=== PATIENT | female | born 1975 | race Caucasian/White ===

== ENCOUNTER → 2016-12-12 | Outpatient (CLI) | payer BC ==
[2016-12-12 08:52] LABS: Basophils % (A) 0 %; CHCM 30.9; Eosinophils # (A) 0.1 k/uL (0-0.7); Eosinophils % (A) 1 %; HCT 38.1 % (34.0-46.0); HDW 2.31; HGB 11.9 gm/dL (11.4-16.0); Hypochromasia Slight; Luc # (Auto) 0.06; Luc % (Auto) 1; Lymphocytes # (A) 1.4 k/uL (1.0-4.8); Lymphocytes % (A) 19 %; MCH 32.5 pg (25.0-35.0); MCHC 31.1 g/dL (31.0-37.0); MCV 104.5 fL (80.0-100.0); Macrocytosis Moderate; Mean Platelet Volume 9.4; Monocytes # (A) 0.3 k/uL (0-1.0); Monocytes % (A) 4 %; Neutrophils # (A) 5.5 k/uL (1.3-7.7); Neutrophils % (A) 76 %; RBC 3.65 m/uL (3.80-5.40); RDW 14.4 % (11.5-15.5); WBC 7.2 k/uL (3.8-10.6); WBC (Perox) 7.32
[2016-12-12 13:54] LABS: ALT 30 U/L (9-52); AST 15 U/L (14-36); Alkaline Phosphatase 117 U/L (38-126); Anion Gap 7 mmol/L; Bilirubin, Delta 0.3 mg/dL (0.0-0.2); Blood Urea Nitrogen 16 mg/dL (7-17); Calcium 8.9 mg/dL (8.4-10.2); Carbon Dioxide 24 mmol/L (22-30); Chloride 108 mmol/L (98-107); Cholesterol 108 mg/dL (<200); HDL Cholesterol 46 mg/dL (40-60); Iron 34 ug/dL (37-170); Magnesium 1.8 mg/dL (1.6-2.3); Non-African American GFR(MDRD) >60 (>60 ml/min/1.73 sqM); Potassium 4.2 mmol/L (3.5-5.1); Sodium 139 mmol/L (137-145); Total Bilirubin 0.8 mg/dL (0.2-1.3); Total Protein 5.7 g/dL (6.3-8.2); Triglycerides 59 mg/dL (<150)
[2016-12-12 14:03] LABS: % Iron Saturation 15.7 % (20-50); Total Iron Binding Capacity 216 ug/dL (265-497)
[2016-12-13 14:50] LABS: Vitamin D, 1, 25-Dihydroxy 58 pg/mL (20 - 79)
== END | disposition home or self-care (01) ==
LOC: LABWHC1 08:01
DX: E75.5 Other lipid storage disorders (principal); E78.9 Disorder of lipoprotein metabolism, unspecified; E55.9 Vitamin D deficiency, unspecified; R94.4 Abnormal results of kidney function studies; K91.2 Postsurgical malabsorption, not elsewhere classified; D53.8 Other specified nutritional anemias; E87.8 Other disorders of electrolyte and fluid balance, not elsewhere classified; R94.5 Abnormal results of liver function studies; R77.0 Abnormality of albumin; R73.09 Other abnormal glucose; D50.8 Other iron deficiency anemias; R68.89 Other general symptoms and signs; N20.0 Calculus of kidney
CPT/HCPCS: 36415; 80051; 80061; 82040; 82248; 82306; 82310; 82525; 82565; 82652; 82728; 83540; 83550; 83735; 83970; 84075; 84155; 84450; 84460; 84520; 84590; 84630; 85025

== ENCOUNTER → 2018-01-27 | Outpatient (CLI) | payer BC ==
--- NOTE | 2018-01-27 14:50 | CT ---
EXAMINATION TYPE: CT abdomen w con DATE OF EXAM: 01/27/2018 COMPARISON: NONE HISTORY: Abn labs CT DLP: 1660.7 mGycm Automated exposure control for dose reduction was used. TECHNIQUE: Helical acquisition of images was performed from the lung bases through the top of iliac crest to include entire abdomen. CONTRAST: Performed with Oral Contrast and with IV Contrast, patient injected with 100 mL of Isovue 300. FINDINGS: LUNG BASES: No significant abnormality is appreciated. LIVER/GB: Cholecystectomy clips are in place. Mild hepatomegaly. No space occupying lesion. PANCREAS: No significant abnormality is seen. SPLEEN: There is evidence of splenomegaly measuring 13.1 cm craniocaudal dimension. ADRENALS: No significant abnormality is seen. KIDNEYS: No significant abnormality is seen. BOWEL: No significant abnormality is seen. LYMPH NODES: No significant abnormality is seen. OSSEOUS STRUCTURES: No significant abnormality is seen. FREE AIR: No free air is visualized. OTHER: Anterior abdominal wall fat-containing hernia. IMPRESSION: 1. No acute process seen. 2. Splenomegaly. 3. Mild hepatomegaly.
== END | disposition home or self-care (01) ==
LOC: RADCTMAIN 13:26
PROVIDERS: ATTEND Internal Medicine Hematology & Oncology
DX: R16.2 Hepatomegaly with splenomegaly, not elsewhere classified (principal)
CPT/HCPCS: 74160; Q9967

== ENCOUNTER 2018-02-20 06:45 | Day surgery (SDC) | payer BC ==
[2018-02-17 11:21] VITALS: BMI 44.8
[~2018-02-20 06:45] MED LIST: LACTATED RINGERS 1,000 ML IV SCH; Pre Op ABX Message 1 EACH MISC MISCELLANE ONE
[2018-02-20 07:26] VITALS: RESP 16; TEMP 97.1
[2018-02-20] MEDS ORDERED: LIDOCAINE 1% 20 ML VIAL (10MG/ML) FOR IV START INTRADERMA ONE (07:42)
[2018-02-20] MEDS ORDERED: PROPOFOL 10 MG/ML 20 ML VIAL IV ONE (08:12)
[2018-02-20] MEDS ORDERED: fentaNYL (PF) 50 MCG/ML 2 ML AMP ONE (08:12)
--- NOTE | 2018-02-20 08:53 | P.PCN ---
Date of Procedure: 02/20/18 Preoperative Diagnosis: Macrocytic anemia Postoperative Diagnosis: Macrocytic anemia Procedure(s) Performed: Bone marrow aspiration biopsy Anesthesia: MAC Surgeon: Larry Barrera [employer] Captain #1: Stated None Estimated Blood Loss (ml): 4 Pathology: other Condition: stable Disposition: same day Indications for Procedure: Persistent macrocytic anemia, with negative lab work up Operative Findings: Adequate samples Description of Procedure: The procedure was explained to the patient in detail in the office by Dr. Saunders. Informed consent was obtained on arrival to the endoscopy suite, along with IV access. She was placed in the left lateral decubitus position and area over both posterior and if crest was cleaned and prepped with chlorhexidine and sterile draping. IV sedation was then initiated. Local anesthesia was administered with lidocaine. A Jamshidi needle was then inserted and bone marrow aspirate and biopsy obtained. The initial biopsy sample was small due to which to additional passes were made, ultimately with a 6 inch bone marrow needle. This resulted in an adequate biopsy sample being obtained. On withdrawal of the needle heis was easily achieved. Blood loss was minimal and recovery from sedation was satisfactory. She appeared to have tolerated the procedure well without any obvious immediate complications.
[2018-02-20] MEDS ORDERED: ONDANSETRON 4 MG/2 ML VIAL IVP ONE (09:10)
[2018-02-20 09:11] LABS: Basophils % (A) 1 %; Eosinophils # (A) 0.2 k/uL (0-0.7); Eosinophils % (A) 4 %; HCT 37.6 % (34.0-46.0); HGB 11.6 gm/dL (11.4-16.0); Lymphocytes # (A) 1.9 k/uL (1.0-4.8); Lymphocytes % (A) 33 %; MCH 30.6 pg (25.0-35.0); MCHC 30.9 g/dL (31.0-37.0); MCV 99.1 fL (80.0-100.0); Macrocytosis Slight; Mean Platelet Volume 8.6; Monocytes # (A) 0.2 k/uL (0-1.0); Monocytes % (A) 3 %; Neutrophils # (A) 3.4 k/uL (1.3-7.7); Neutrophils % (A) 59 %; Platelet Count 338 k/uL (150-450); RDW 15.9 % (11.5-15.5); WBC 5.8 k/uL (3.8-10.6)
[2018-02-20 09:37] VITALS: BP 111/67; PULSE 65
[2018-02-20] MEDS ORDERED: ACETAMINOPHEN TAB 325 MG TAB PO ONE (09:43)
== END 2018-02-20 10:27 | disposition home or self-care (01) ==
LOC: OR 06:45
PROVIDERS: ATTEND Internal Medicine Hematology & Oncology
DX: D53.9 Nutritional anemia, unspecified (principal); K95.89 Other complications of other bariatric procedure; D50.8 Other iron deficiency anemias; D50.0 Iron deficiency anemia secondary to blood loss (chronic); M79.7 Fibromyalgia; M15.9 Polyosteoarthritis, unspecified; E07.9 Disorder of thyroid, unspecified; F32.9 Major depressive disorder, single episode, unspecified; K21.9 Gastro-esophageal reflux disease without esophagitis; R10.9 Unspecified abdominal pain; E66.9 Obesity, unspecified; Z68.41 Body mass index [BMI] 40.0-44.9, adult; Z79.890 Hormone replacement therapy; Z79.899 Other long term (current) drug therapy; Z79.1 Long term (current) use of non-steroidal anti-inflammatories (NSAID)
CPT/HCPCS: 81025; 85025; 38221; J2405; J3010; J2704

== ENCOUNTER → 2018-04-22 | Outpatient (CLI) | payer BC ==
[2018-04-22 12:22] LABS: ALT 30 U/L (9-52); AST 19 U/L (14-36); Alkaline Phosphatase 103 U/L (38-126); Anion Gap 6 mmol/L; Blood Urea Nitrogen 15 mg/dL (7-17); Carbon Dioxide 25 mmol/L (22-30); Chloride 108 mmol/L (98-107); Glucose 81 mg/dL (74-99); Potassium 4.3 mmol/L (3.5-5.1); Sodium 139 mmol/L (137-145); Total Bilirubin 0.7 mg/dL (0.2-1.3)
[2018-04-22 18:35] LABS: Iron Saturation 21.94 (12.00-45.00); Protein, Total 5.9 g/dL (6.2-8.2)
[2018-04-22 19:39] LABS: Hepatitis B Surface AB- Quant 3.5 mIU/mL; Hepatitis C IgG Antibody Non-Reactive (Non-Reactive)
[2018-04-23 12:42] LABS: Ceruloplasmin 12.6 mg/dL (20.0-60.0)
[2018-04-24 10:49] LABS: Albumin 3.11 g/dL (3.80-4.90); Gamma Globulin 1.31 g/dL (0.70-1.50)
== END | disposition home or self-care (01) ==
LOC: LABWHC1 11:35
PROVIDERS: ATTEND Internal Medicine Gastroenterology
DX: R94.5 Abnormal results of liver function studies (principal); R16.2 Hepatomegaly with splenomegaly, not elsewhere classified
CPT/HCPCS: 36415; 80053; 82103; 82172; 82247; 82390; 82728; 82977; 83010; 83516; 83540; 83550; 83883; 84165; 84460; 86038; 86706; 86803

== ENCOUNTER → 2018-11-24 | Outpatient (CLI) | payer BC ==
[2018-11-24 19:53] LABS: Albumin 2.8 g/dL (3.80-4.90); Albumin/Globulin Ratio 1.33 (1.60-3.17); Anion Gap 4.4 mmol/L (4.00-12.00); Calcium 8.3 mg/dL (8.7-10.3); Carbon Dioxide 26.6 mmol/L (21.6-31.8); Globulin 2.1 g/dL (1.6-3.3); Potassium 4.8 mmol/L (3.5-5.5); Total Bilirubin 0.6 mg/dL (0.2-1.2); Total Protein 4.9 g/dL (6.2-8.2)
== END | disposition home or self-care (01) ==
LOC: LABWHC1 13:55
PROVIDERS: ATTEND Internal Medicine Gastroenterology
DX: R79.89 Other specified abnormal findings of blood chemistry (principal)
CPT/HCPCS: 36415; 80053

== ENCOUNTER → 2018-12-01 | Outpatient (CLI) | payer BC ==
[2018-12-01 15:32] LABS: Basophils % (A) 0 %; Eosinophils # (A) 0.2 k/uL (0-0.7); Eosinophils % (A) 4 %; HCT 30.8 % (34.0-46.0); HGB 10.1 gm/dL (11.4-16.0); Lymphocytes # (A) 1.4 k/uL (1.0-4.8); Lymphocytes % (A) 26 %; MCH 33.5 pg (25.0-35.0); MCHC 32.7 g/dL (31.0-37.0); MCV 102.6 fL (80.0-100.0); Macrocytosis Slight; Mean Platelet Volume 8.9; Monocytes # (A) 0.2 k/uL (0-1.0); Monocytes % (A) 3 %; Neutrophils # (A) 3.6 k/uL (1.3-7.7); Neutrophils % (A) 65 %; Platelet Count 281 k/uL (150-450); RDW 15.2 % (11.5-15.5); WBC 5.5 k/uL (3.8-10.6)
[2018-12-01 20:31] LABS: Iron Saturation 270.18 (12.00-45.00)
[2018-12-01 20:55] LABS: Vitamin D 25 Hydroxy 13.6 ng/mL (30.0-100.0)
[2018-12-01 21:13] LABS: Albumin/Globulin Ratio 1.15 (1.60-3.17); Bilirubin, Conjugated 0.4 mg/dL (0.20-0.40); Bilirubin,Unconjugated 0.5 mg/dL; Globulin 2.6 g/dL (1.6-3.3); Total Bilirubin 0.9 mg/dL (0.3-1.2); Total Protein 5.6 g/dL (6.2-8.2)
[2018-12-01 23:16] LABS: Parathyroid Hormone Intact 137.5 pg/mL (14.0-72.0)
== END | disposition home or self-care (01) ==
LOC: LABWHC1 12:51
DX: K91.2 Postsurgical malabsorption, not elsewhere classified (principal); R94.5 Abnormal results of liver function studies; R77.0 Abnormality of albumin; E56.8 Deficiency of other vitamins; E50.9 Vitamin A deficiency, unspecified; E21.0 Primary hyperparathyroidism; E87.8 Other disorders of electrolyte and fluid balance, not elsewhere classified; R94.4 Abnormal results of kidney function studies; R68.89 Other general symptoms and signs; D50.8 Other iron deficiency anemias; E60 Dietary zinc deficiency; E61.9 Deficiency of nutrient element, unspecified; E07.9 Disorder of thyroid, unspecified
CPT/HCPCS: 36415; 80076; 82306; 82525; 82565; 82728; 83540; 83550; 83970; 84436; 84443; 84480; 84520; 84590; 84630; 85025

== ENCOUNTER → 2018-12-01 | Outpatient (CLI) | payer BC ==
[~2018-12-01] MED LIST changes: +FERUMOXYTOL 510 MG in SODIUM CHLORIDE 0.9% 50 ML IVPB NR; -LACTATED RINGERS 1,000 ML IV SCH; -Pre Op ABX Message 1 EACH MISC MISCELLANE ONE; +SODIUM CHLORIDE 0.9% 500 ML 500 ML in EMPTY BAG 1 BAG IV PRN
[2018-12-01 14:17] VITALS: BP 108/66; PULSE 84; RESP 16; TEMP 97.7
== END ==
LOC: PROCWHC3 13:38
PROVIDERS: ATTEND Internal Medicine Hematology & Oncology
DX: D50.9 Iron deficiency anemia, unspecified (principal)
CPT/HCPCS: 96365; Q0138

== ENCOUNTER → 2018-12-02 | Outpatient (CLI) | payer BC ==
[2018-12-02 16:33] LABS: Cholesterol 102 mg/dL (0-200); Triglycerides <50.0 mg/dL (0.0-149.0); VLDL Calculation 9.98 mg/dL (5.00-40.00)
== END | disposition home or self-care (01) ==
LOC: LABWHC1 07:36
DX: K91.2 Postsurgical malabsorption, not elsewhere classified (principal); R94.5 Abnormal results of liver function studies; R77.0 Abnormality of albumin; E56.8 Deficiency of other vitamins; E50.9 Vitamin A deficiency, unspecified; E21.5 Disorder of parathyroid gland, unspecified; E87.8 Other disorders of electrolyte and fluid balance, not elsewhere classified; R94.4 Abnormal results of kidney function studies; R68.89 Other general symptoms and signs; E61.1 Iron deficiency; E60 Dietary zinc deficiency; E61.0 Copper deficiency; E07.9 Disorder of thyroid, unspecified
CPT/HCPCS: 36415; 80061

== ENCOUNTER → 2018-12-15 | Outpatient (CLI) | payer BC ==
--- NOTE | 2018-12-15 15:55 | US ---
EXAMINATION TYPE: US pelvic complete DATE OF EXAM: 12/15/2018 COMPARISON: NONE CLINICAL HISTORY: N92.0 FREQ MENSTRATION. Pelvic pain near symphysis pubis, weight loss of 200lbs the past 2 year s and cycles are irregular, , c-sections TECHNIQUE: TA. Transabdominal sonographic images of the pelvis were acquired. Date of LMP: 12/05/2018 EXAM MEASUREMENTS: Uterus: 9.6 x 5.1 x 4.3 cm Endometrial Stripe: 0.8 cm Right Ovary: 4.3 x 3.4 x 3.4 cm Left Ovary: 4.9 x 3.9 x 4.1 cm 1. Uterus: Anteverted wnl 2. Endometrium: wnl 3. Right Ovary: 3.1cm cystic lesion seen 4. Left Ovary: 4.5cm cystic lesion seen 5. Bilateral Adnexa: wnl 6. Posterior cul-de-sac: wnl IMPRESSION: Bilateral ovarian cysts appear simple. Follow-up is recommended.
== END | disposition home or self-care (01) ==
LOC: RADUSWWP 13:34
PROVIDERS: ATTEND Family Medicine
DX: N83.201 Unspecified ovarian cyst, right side (principal); N83.202 Unspecified ovarian cyst, left side
CPT/HCPCS: 76856

== ENCOUNTER → 2019-02-04 | Outpatient (CLI) | payer BC ==
[2019-02-04 11:47] LABS: Basophils % (A) 1 %; Eosinophils # (A) 0.1 k/uL (0-0.7); Eosinophils % (A) 2 %; HCT 31.9 % (34.0-46.0); HGB 9.8 gm/dL (11.4-16.0); Hypochromasia Slight; Lymphocytes # (A) 0.9 k/uL (1.0-4.8); Lymphocytes % (A) 27 %; MCH 32.6 pg (25.0-35.0); MCHC 30.7 g/dL (31.0-37.0); MCV 106.3 fL (80.0-100.0); Macrocytosis Moderate; Mean Platelet Volume 9.2; Monocytes # (A) 0.2 k/uL (0-1.0); Monocytes % (A) 5 %; Neutrophils # (A) 2.2 k/uL (1.3-7.7); Neutrophils % (A) 64 %; Platelet Count 229 k/uL (150-450); RDW 13.3 % (11.5-15.5); WBC 3.5 k/uL (3.8-10.6)
[2019-02-04 16:17] LABS: Vitamin D 25 Hydroxy 18.2 ng/mL (30.0-100.0)
[2019-02-04 17:08] LABS: Parathyroid Hormone Intact 96.6 pg/mL (14.0-72.0)
[2019-02-04 17:15] LABS: Iron Saturation 18.58 (12.00-45.00)
[2019-02-04 18:03] LABS: African American GFR (CKD) 138.4 (60.0-200.0); Albumin/Globulin Ratio 1.43 (1.60-3.17); Bilirubin, Conjugated 0.3 mg/dL (0.20-0.40); Bilirubin,Unconjugated 0.3 mg/dL; Calcium 8.6 mg/dL (8.7-10.3); Globulin 2.1 g/dL (1.6-3.3); Total Bilirubin 0.6 mg/dL (0.2-1.2); Total Protein 5.1 g/dL (6.2-8.2)
[2019-02-05 13:45] LABS: Zinc, Serum 45 ug/dL (60-130)
== END | disposition home or self-care (01) ==
LOC: LABWHC1 10:42
DX: K91.2 Postsurgical malabsorption, not elsewhere classified (principal); R77.0 Abnormality of albumin; E87.8 Other disorders of electrolyte and fluid balance, not elsewhere classified; R94.4 Abnormal results of kidney function studies; D60.8 Other acquired pure red cell aplasias; E61.0 Copper deficiency; E46 Unspecified protein-calorie malnutrition; R68.89 Other general symptoms and signs
CPT/HCPCS: 36415; 80076; 82306; 82310; 82525; 82565; 82728; 83540; 83550; 83970; 84520; 84590; 84630; 85025

== ENCOUNTER → 2019-06-26 | Outpatient (CLI) | payer BC ==
[2019-06-26 10:12] LABS: Basophils % (A) 1 %; Eosinophils # (A) 0.1 k/uL (0-0.7); Eosinophils % (A) 3 %; HCT 31.2 % (34.0-46.0); HGB 9.8 gm/dL (11.4-16.0); Hypochromasia Marked; Lymphocytes # (A) 1.3 k/uL (1.0-4.8); Lymphocytes % (A) 26 %; MCH 32.2 pg (25.0-35.0); MCHC 31.5 g/dL (31.0-37.0); MCV 102.1 fL (80.0-100.0); Macrocytosis Slight; Mean Platelet Volume 7.5; Monocytes # (A) 0.2 k/uL (0-1.0); Monocytes % (A) 4 %; Neutrophils # (A) 3.3 k/uL (1.3-7.7); Neutrophils % (A) 65 %; Platelet Count 291 k/uL (150-450); RBC 3.06 m/uL (3.80-5.40); RDW 13.5 % (11.5-15.5); WBC 5.1 k/uL (3.8-10.6)
[2019-06-26 17:45] LABS: % Iron Saturation 10.61 (12.00-45.00); African American GFR (CKD) 130.3 (60.0-200.0); Calcium 8.7 mg/dL (8.7-10.3); Chol/HDL Ratio 2.63; LDL Cholesterol,Calculated 60.8 mg/dL (0.0-131.0); VLDL Calculation 14.2 mg/dL (5.00-40.00)
[2019-06-26 17:51] LABS: Ferritin 57.7 ng/mL (10.0-291.0)
[2019-06-29 17:28] LABS: Zinc, Serum 49 ug/dL (60-130)
[2019-07-01 12:11] LABS: Vitamin A <13 ug/dL (38-106)
== END | disposition home or self-care (01) ==
LOC: LABWHC1 09:17
DX: K91.2 Postsurgical malabsorption, not elsewhere classified (principal); E61.1 Iron deficiency; E87.8 Other disorders of electrolyte and fluid balance, not elsewhere classified; R94.4 Abnormal results of kidney function studies
CPT/HCPCS: 36415; 80061; 82306; 82310; 82525; 82565; 82728; 83540; 83550; 83970; 84520; 84590; 84630; 85025

== ENCOUNTER → 2019-10-03 | Outpatient (CLI) | payer BC ==
[2019-10-03 11:53] LABS: Basophils % (A) 1 %; Eosinophils # (A) 0.1 k/uL (0-0.7); Eosinophils % (A) 3 %; HCT 27.8 % (34.0-46.0); HGB 8.5 gm/dL (11.4-16.0); Hypochromasia Moderate; Lymphocytes # (A) 0.7 k/uL (1.0-4.8); Lymphocytes % (A) 20 %; MCH 29.9 pg (25.0-35.0); MCHC 30.5 g/dL (31.0-37.0); MCV 98.3 fL (80.0-100.0); Mean Platelet Volume 9.6; Monocytes # (A) 0.1 k/uL (0-1.0); Monocytes % (A) 3 %; Neutrophils # (A) 2.7 k/uL (1.3-7.7); Neutrophils % (A) 71 %; Platelet Count 293 k/uL (150-450); RBC 2.83 m/uL (3.80-5.40); WBC 3.8 k/uL (3.8-10.6)
[2019-10-03 18:59] LABS: Ferritin 65.6 ng/mL (10.0-291.0)
[2019-10-03 19:04] LABS: % Iron Saturation 6.37 (12.00-45.00); Albumin 3.1 g/dL (3.80-4.90); Albumin/Globulin Ratio 1.41 (1.60-3.17); Bilirubin, Conjugated 0.3 mg/dL (0.20-0.40); Bilirubin,Unconjugated 0.2 mg/dL; Chol/HDL Ratio 2.73; Globulin 2.2 g/dL (1.6-3.3); LDL Cholesterol,Calculated 52.6 mg/dL (0.0-131.0); Total Bilirubin 0.5 mg/dL (0.2-1.2); Total Protein 5.3 g/dL (6.2-8.2); VLDL Calculation 11.4 mg/dL (5.00-40.00)
== END | disposition home or self-care (01) ==
LOC: LABWHC1 10:48
DX: E78.5 Hyperlipidemia, unspecified (principal); R94.5 Abnormal results of liver function studies; R77.0 Abnormality of albumin; E83.39 Other disorders of phosphorus metabolism; E56.8 Deficiency of other vitamins; E83.50 Unspecified disorder of calcium metabolism; E50.9 Vitamin A deficiency, unspecified; Z13.1 Encounter for screening for diabetes mellitus; E46 Unspecified protein-calorie malnutrition; E78.6 Lipoprotein deficiency; D50.8 Other iron deficiency anemias; K91.2 Postsurgical malabsorption, not elsewhere classified; E83.2 Disorders of zinc metabolism; E83.00 Disorder of copper metabolism, unspecified; E07.9 Disorder of thyroid, unspecified
CPT/HCPCS: 36415; 80061; 80076; 82306; 82525; 82728; 83540; 83550; 83970; 84436; 84443; 84480; 84590; 84630; 85025

== ENCOUNTER → 2019-11-04 | Outpatient (CLI) | payer BC ==
[2019-11-04 12:40] LABS: Anisocytosis Slight; Basophils % (A) 1 %; Eosinophils # (A) 0.2 k/uL (0-0.7); Eosinophils % (A) 3 %; HCT 36.2 % (34.0-46.0); Hypochromasia Moderate; Lymphocytes # (A) 1.5 k/uL (1.0-4.8); Lymphocytes % (A) 30 %; MCH 29.9 pg (25.0-35.0); MCHC 30.5 g/dL (31.0-37.0); MCV 97.9 fL (80.0-100.0); Macrocytosis Slight; Mean Platelet Volume 9.1; Monocytes # (A) 0.2 k/uL (0-1.0); Monocytes % (A) 4 %; Neutrophils % (A) 60 %; Platelet Count 389 k/uL (150-450); RBC 3.69 m/uL (3.80-5.40); RDW 16.3 % (11.5-15.5)
[2019-11-04 17:10] LABS: % Iron Saturation 14.29 (12.00-45.00); Albumin 3.8 g/dL (3.80-4.90); Albumin/Globulin Ratio 1.52 (1.60-3.17); Bilirubin, Conjugated 0.5 mg/dL (0.20-0.40); Bilirubin,Unconjugated 0.2 mg/dL; Globulin 2.5 g/dL (1.6-3.3); Total Bilirubin 0.7 mg/dL (0.2-1.2); Total Protein 6.3 g/dL (6.2-8.2)
[2019-11-04 17:11] LABS: Ferritin 289.5 ng/mL (10.0-291.0)
[2019-11-05 15:08] LABS: Zinc, Serum 52 ug/dL (60-130)
== END | disposition home or self-care (01) ==
LOC: LABWHC1 11:20
DX: R94.5 Abnormal results of liver function studies (principal); R77.0 Abnormality of albumin; R68.89 Other general symptoms and signs; E78.6 Lipoprotein deficiency; E78.5 Hyperlipidemia, unspecified; N20.0 Calculus of kidney; E83.2 Disorders of zinc metabolism; E83.00 Disorder of copper metabolism, unspecified; K90.9 Intestinal malabsorption, unspecified
CPT/HCPCS: 36415; 80076; 82306; 82525; 82728; 83540; 83550; 84630; 85025

== ENCOUNTER → 2022-11-23 | Outpatient (CLI) | payer BC ==
--- NOTE | 2022-11-23 16:30 | CT ---
CTA abdomen and pelvis. HISTORY: Rule out portal vein., thrombosis right-sided abdominal pain COMPARISON: CT abdomen dated 01/27/2018. Multiple axial images were obtained through the abdomen and pelvis following uneventful administratio n of nonionic IV contrast material. Coronal and sagittal reconstructions were generated and reviewed. 3-D postprocessing was performed. FINDINGS: Visualized lung bases are clear. There are surgical absence of gallbladder. There are postsurgical changes involving the right lower quadrant anterior abdominal wall. There are anastomotic sutures The mid abdominal bowel loops. There are postsurgical changes involving the stomach is well. The bowel loops are normal in caliber is no evidence of obstruction. There is no free intraperitoneal air or fluid. The kidneys excrete contrast promptly and symmetrically and there is no solid renal mass or hydroneph rosis. There is a nonobstructing 6 mm left renal calculus. There are marked parapelvic cysts bilatera lly. Caliber the abdominal aorta is normal is no evidence of aneurysm. There is no evidence of portal vein thrombosis. There is persistent mild splenomegaly and possibly mild hepatomegaly. There is no pancreatic mass or adrenal mass. There is increased subcutaneous edema particularly in the lower anterior abdominal wall and pelvis co nsistent with anasarca. There is no pelvic mass or adenopathy. No focal osseous abnormalities are seen. IMPRESSION: 1. No portal vein thrombosis. 2. Increasing anasarca of the lower anterior abdominal wall and pelvis. 3. 6 mm nonobstructing left renal calculus. 4. Multiple postsurgical changes involving the abdominal wall, stomach and bowel. Cholecystectomy. 5. Persistent mild splenomegaly possible mild hepatomegaly.
== END | disposition home or self-care (01) ==
LOC: RADCTMAIN 14:39
PROVIDERS: ATTEND Internal Medicine Hematology & Oncology
DX: N20.0 Calculus of kidney (principal); I81 Portal vein thrombosis; R60.1 Generalized edema; R16.1 Splenomegaly, not elsewhere classified; Z90.49 Acquired absence of other specified parts of digestive tract
CPT/HCPCS: 74174; Q9967

== ENCOUNTER → 2022-12-01 | Outpatient (CLI) | payer BC ==
--- NOTE | 2022-12-01 10:43 | MR ---
MRCP. HISTORY: Right upper quadrant pain COMPARISON: None TECHNIQUE: MRCP of the abdomen was performed according to protocol. Exam was performed with and witho ut contrast. Findings There is surgical absence of the gallbladder. Biliary tree is patent without filling defects or dilatation. No focal masses are seen within the liver or pancreas. There are marked parapelvic cysts of the kidneys. The bowel loops are normal in caliber. There is no free intraperitoneal fluid. IMPRESSION: Unremarkable MRCP. Status post cholecystectomy.
== END | disposition home or self-care (01) ==
LOC: RADMRIMAIN 08:58
PROVIDERS: ATTEND Internal Medicine Hematology & Oncology
DX: R10.11 Right upper quadrant pain (principal); Z90.49 Acquired absence of other specified parts of digestive tract
CPT/HCPCS: 74181

== ENCOUNTER → 2023-02-12 | Outpatient (CLI) | payer BC ==
[2023-02-13 12:17] LABS: ALT 12 U/L (8-44); AST 9 U/L (13-35); Albumin 2.7 d/dL (3.8-4.9); Albumin/Globulin Ratio 1.04 Ratio (1.60-3.17); Alkaline Phosphatase 155 U/L (41-126); BUN/Creat Ratio 27.83 Ratio (12.00-20.00); Blood Urea Nitrogen 16.7 mg/dL (9.0-27.0); Calcium 8.1 mg/dL (8.7-10.3); Carbon Dioxide 21.6 mmol/L (21.6-31.8); Chloride 111 mmol/L (96-109); Globulin 2.6 d/dL (1.6-3.3); Glucose 78 mg/dL (70-110); Phosphorus 3.1 mg/dL (2.4-5.1); Potassium 4.1 mmol/L (3.5-5.5); Sodium 140 mmol/L (135-145); T4, Free (Free Thyroxine) 1.09 ng/dL (0.80-1.80); Total Bilirubin 0.5 mg/dL (0.3-1.2); Total Protein 5.3 d/dL (6.2-8.2)
== END | disposition home or self-care (01) ==
LOC: LABWHC1 14:34
PROVIDERS: ATTEND Internal Medicine
DX: E03.9 Hypothyroidism, unspecified (principal); E34.9 Endocrine disorder, unspecified; E55.9 Vitamin D deficiency, unspecified
CPT/HCPCS: 36415; 80053; 82306; 83970; 84100; 84439; 84443

== ENCOUNTER 2023-12-29 12:24 | Inpatient (IN) | payer BC ==
--- NOTE | 2023-12-29 12:57 | ED ---
General Adult HPI - General Chief complaint: Weakness Stated complaint: Weakness Time Seen by Provider: 12/29/23 12:29 Source: patient, family, EMS, RN notes reviewed Mode of arrival: EMS Limitations: no limitations - History of Present Illness Initial comments: Patient is a 48-year-old female present to the emergency department from skilled nursing for weakness. Onset of symptoms was 3 days ago. Patient has been increased fatigue. provides majority of history as patient is drowsy. Patient does have history of anemia and possible liver diseases. Questionable history of [place]'s disease. and patient believes 74 systolic blood pr essure is normal for her. Patient was recently hospitalized for infection of her right leg, cellulitis. Patient does see hematology for chronic anemia. - Related Data Home Medications Medication Instructions Recorded Confirmed Vortioxetine Hydrobromide 20 mg PO DAILY@0900 02/17/12/29/23 [Trintellix] Calcium Carbonate [Tums] 1,000 mg PO TID PRN 12/29/23 12/29/23 Cyclobenzaprine [Flexeril] 10 mg PO TID PRN 12/29/23 12/29/23 Furosemide [Lasix] 20 mg PO DAILY@1300 12/29/23 12/29/23 Furosemide [Lasix] 40 mg PO DAILY@0600 12/29/23 12/29/23 Gabapentin [Neurontin] 300 mg PO HS@2100 12/29/23 12/29/23 HYDROcodone/APAP 5-325MG [[place] 1 tab PO Q6H PRN 12/29/23 12/29/23 5-325] Hydrocortisone [Cortef] 20 mg PO DAILY@0900 12/29/23 12/29/23 Lactose-Reduced Food [Ensure Plus] 1 can PO DAILY@0900 12/29/23 12/29/23 Levothyroxine Sodium [Synthroid] 200 mcg PO DAILY@0600 12/29/23 12/29/23 Miconazole Nitrate Powder 2% 1 applic TOPICAL Q12H 12/29/23 12/29/23 Midodrine HCl [ProAmatine] 10 mg PO TID-W/MEALS@08,12,17 12/29/23 12/29/23 Nystatin 100,000 Unit/gm Powd 1 applic TOPICAL BID 12/29/23 12/29/23 [Mycostatin Powder] Ondansetron [Zofran] 4 mg PO Q6H PRN 12/29/23 12/29/23 Potassium Chloride ER [K-Dur 20] 20 meq PO DAILY@0600 12/29/23 12/29/23 Spironolactone [Aldactone] 12.5 mg PO DAILY@0900 12/29/23 12/29/23 Therahoney External Gel 1 applic TOPICAL DAILY PRN 12/29/23 12/29/23 Therahoney External Gel 1 applic TOPICAL DAILY PRN 12/29/23 12/29/23 Therahoney External Gel 1 applic TOPICAL HS 12/29/23 12/29/23 Therahoney External Gel 1 applic TOPICAL HS 12/29/23 12/29/23 Z-Guard 1 applic TOPICAL BID 12/29/23 12/29/23 Z-Guard 1 applic TOPICAL DAILY PRN 12/29/23 12/29/23 Allergies Allergy/AdvReac Type Severity Reaction Status Date / Time No Known Allergies Allergy Verified 12/29/23 14:04 Review of Systems ROS Statement: Those systems with pertinent positive or pertinent negative responses have been documented in the HPI. ROS Other: All systems not noted in ROS Statement are negative. Constitutional: Denies: fever Eyes: Denies: eye pain ENT: Denies: ear pain Respiratory: Denies: dyspnea Cardiovascular: Denies: chest pain Endocrine: Reports: as per HPI, fatigue Neurological: Reports: as per HPI. Denies: headache Past Medical History Past Medical History: GERD/Reflux, Osteoarthritis (OA), Thyroid Disorder Additional Past Medical History / Comment(s): enlarged liver and spleen,hx. iron deficiency anemia, recent change in bowel movements , abdominal pain, nausea, blood clots post covid History of Any Multi-Drug Resistant Organisms: CRE, Other MDRO Date of last positivie culture/infection: 10/14/23 MDRO [facility] MDRO Source:: Urine Past Surgical History: Bariatric Surgery, Section, Cholecystectomy, Tubal Ligation Additional Past Surgical History / Comment(s): Bariatric revision duodenum switch 2015,2000 Aneesh-en-Y gastric bypass, 3 c-sections. PANECTOMY. Past Anesthesia/Blood Transfusion Reactions: Family Hisory of Malignant Hyperthermia Additional Past Anesthesia/Blood Transfusion Reaction / Comment(s): 1rst cousin hx malignant hyperthermia as child.Pt has had anesthesia in past without problems Past Psychological History: Depression Smoking Status: Never smoker - Past Family History Mother Family Medical History: No Reported History General Exam Limitations: no limitations General appearance: alert Head exam: Present: normocephalic Eye exam: Present: normal appearance ENT exam: Present: mucous membranes dry Neck exam: Present: normal inspection Respiratory exam: Present: normal lung sounds bilaterally Cardiovascular Exam: Present: regular rate, normal rhythm GI/Abdominal exam: Present: soft. Absent: tenderness Extremities exam: Present: pedal edema Neurological exam: Present: alert Psychiatric exam: Present: flat affect Skin exam: Present: other (Right thigh with some erythema and open area with mild purulent drainage. Right anterior tibial region with stage II ulcer with eschar formation) Course Vital Signs 12/29/23 12/29/23 12/29/23 12:33 13:30 14:30 Temperature 97.9 F 97.6 F Pulse Rate 99 98 93 Respiratory 16 16 12 Rate Blood Pressure 74/44 73/45 75/46 O2 Sat by Pulse 93 L 85 L Oximetry 12/29/23 12/29/23 12/29/23 14:49 14:51 15:23 Temperature Pulse Rate 89 86 Respiratory 16 16 Rate Blood Pressure 76/43 80/48 O2 Sat by Pulse 97 97 100 Oximetry EKG Findings - EKG Results: EKG: interpreted by ERMD, sinus rhythm, normal axis, normal QRS, normal ST/T Medical Decision Making - Medical Decision Making Was pt. sent in by a medical professional or institution (, PA, PARAFFINER, urgent care, hospital, or skilled nursing...) When possible be specific @ -Patient was sent from nursing facility Did you speak to anyone other than the patient for history (EMS, parent, family, police, friend...)? What history was obtained from this source @ - is present and helps provide additional history as patient is a poor historian. He does provide additional history of patient recent admission at [facility] Did you review nursing and triage notes (agree or disagree)? Why? @ -I reviewed and agree with nursing and triage notes Were old charts reviewed (outside hosp., previous admission, EMS record, old EKG, old radiological studies, urgent care reports/EKG's, skilled nursing records)? Report findings @ -Previous labs reviewed Differential Diagnosis (chest pain, altered mental status, abdominal pain women, abdominal pain men, vaginal bleeding, weakness, fever, dyspnea, syncope, headache, dizziness, GI bleed, back pain, seizure, CVA, palpatations, mental health, musculoskeletal)? @ -Differential Weakness: Hypoglycemia, shock, sepsis, hyponatremia, anemia, infection, [place], ETOH, adverse medicine reaction, overdose, stroke, this is not meant to be an all-inclusive list. EKG interpreted by me (3pts min.). @ -As above X-rays interpreted by me (1pt min.). @ -Right tib-fib and femur x-ray did not reveal acute abnormalities. Chest x- ray shows bilateral streaking and posterior. CT interpreted by me (1pt min.). @ -None done U/S interpreted by me (1pt. min.). @ -None done What testing was considered but not performed or refused? (CT, X-rays, U/S, labs)? Why? @ -None What meds were considered but not given or refused? Why? @ -Considered central line however patient has thrombocytopenia. Considered p ressors. Case was discussed twice with Dr. Uribe who feels patient is dehydrated and is not necessitate at this time. He recommends not giving pressors and he will continue to monitor patient. No ICU necessary at this time Did you discuss the management of the patient with other professionals (professionals i.e. , PA, PARAFFINER, lab, RT, psych nurse, social director, security architect, teacher, special weapons unit officer, case fitter)? Give summary @ -See above, case also discussed with practitioner Katia Almodovar who will admit covering Dr. Avelar who is covering for Dr. Gilliland Was smoking cessation discussed for >3mins.? @ -No Was critical care preformed (if so, how long)? @ -31 minutes critical care Were there social determinants of health that impacted care today? How? (Homelessness, low income, unemployed, alcoholism, drug addiction, transportation, low edu. Level, literacy, decrease access to med. care, fdc, rehab)? @ -No Was there de-escalation of care discussed even if they declined (Discuss DNR or withdrawal of care, Hospice)? DNR status @ -No What co-morbidities impacted this encounter? (DM, HTN, Smoking, COPD, CAD, Cancer, CVA, ARF, Chemo, Hep., AIDS, mental health diagnosis, sleep apnea, morbid obesity)? @ -None Was patient admitted / discharged? Hospital course, mention meds given and route, prescriptions, significant lab abnormalities, going to OR and other pertinent info. @ -Patient reevaluated several times. Blood pressure has been borderline. Patient has received IV fluids. Patient will be admitted. Admission orders written. Undiagnosed new problem with uncertain prognosis? @ -No Drug Therapy requiring intensive monitoring for toxicity (Heparin, Nitro, Insulin, Cardizem)? @ -No Were any procedures done? @ -No Diagnosis/symptom? @ -New onset thrombocytopenia. Acute kidney injury Acute, or Chronic, or Acute on Chronic? @ -Acute, acute Uncomplicated (without systemic symptoms) or Complicated (systemic symptoms)? @ -Default Side effects of treatment? @ -No Exacerbation, Progression, or Severe Exacerbation? @ -No Poses a threat to life or bodily function? How? (Chest pain, [place], NJ, pneumonia, PE, COPD, DKA, ARF, appy, cholecystitis, CVA, Diverticulitis, Homicidal, Suicidal, threat to staff... and all critical care pts) @ -No - Lab Data Result diagrams: 12/29/23 13:59 12/29/23 13:59 Lab Results 12/29/23 12/29/23 12/29/23 Range/Units 13:53 13:59 13:59 WBC 4.3 (3.8-10.6) k/uL RBC 1.89 L (3.80-5.40) m/uL Hgb 7.3 L (11.4-16.0) gm/dL Hct 22.7 L (34.0-46.0) % MCV 120.1 H (80.0-100.0) fL MCH 38.7 H (25.0-35.0) pg MCHC 32.3 (31.0-37.0) g/dL RDW 16.8 H (11.5-15.5) % Plt Count 24 L (150-450) k/uL MPV 13.7 Neutrophils % 80 % Lymphocytes % 15 % Monocytes % 4 % Eosinophils % 1 % Basophils % 0 % Neutrophils # 3.4 (1.3-7.7) k/uL Lymphocytes # 0.6 L (1.0-4.8) k/uL Monocytes # 0.2 (0-1.0) k/uL Eosinophils # 0.0 (0-0.7) k/uL Basophils # 0.0 (0-0.2) k/uL Manual Slide Review Performed Polychromasia Present Hypochromasia Marked Poikilocytosis Slight Anisocytosis Slight Macrocytosis Marked A PT 12.3 (10.0-12.5) sec INR 1.2 H (<1.2) APTT 28.6 (22.0-30.0) sec Sodium (137-145) mmol/L Potassium (3.5-5.1) mmol/L Chloride (98-107) mmol/L Carbon Dioxide (22-30) mmol/L Anion Gap mmol/L BUN (7-17) mg/dL Creatinine (0.52-1.04) mg/dL Est GFR (CKD-EPI)AfAm (>60 ml/min/1.73 sqM) Est GFR (CKD-EPI)NonAf (>60 ml/min/1.73 sqM) Glucose (74-99) mg/dL Plasma Lactic Acid Gold (0.7-2.0) mmol/L Calcium (8.4-10.2) mg/dL Phosphorus (2.5-4.5) mg/dL Magnesium (1.6-2.3) mg/dL Total Bilirubin (0.2-1.3) mg/dL AST (14-36) U/L ALT (4-34) U/L Alkaline Phosphatase (38-126) U/L Troponin I (0.000-0.034) ng/mL Total Protein (6.3-8.2) g/dL Albumin (3.5-5.0) g/dL TSH (0.465-4.680) mIU/L Cortisol Urine Color Urine Appearance (Clear) Urine pH (5.0-8.0) Ur Specific [place] (1.001-1.035) Urine Protein (Negative) Urine Glucose (UA) (Negative) Urine Ketones (Negative) Urine Blood (Negative) Urine Nitrite (Negative) Urine Bilirubin (Negative) Urine Urobilinogen (<2.0) mg/dL Ur Leukocyte Esterase (Negative) Urine RBC (0-5) /hpf Urine WBC (0-5) /hpf Urine Bacteria (None) /hpf Hyaline Casts (0-2) /lpf Urine Mucus (None) /hpf Influenza Type A (PCR) Not Detected (Not Detectd) Influenza Type B (PCR) Not Detected (Not Detectd) RSV (PCR) Not Detected (Not Detectd) SARS-CoV-2 (PCR) Not Detected (Not Detectd) 12/29/23 12/29/23 12/29/23 Range/Units 13:59 13:59 13:59 WBC (3.8-10.6) k/uL RBC (3.80-5.40) m/uL Hgb (11.4-16.0) gm/dL Hct (34.0-46.0) % MCV (80.0-100.0) fL MCH (25.0-35.0) pg MCHC (31.0-37.0) g/dL RDW (11.5-15.5) % Plt Count (150-450) k/uL MPV Neutrophils % % Lymphocytes % % Monocytes % % Eosinophils % % Basophils % % Neutrophils # (1.3-7.7) k/uL Lymphocytes # (1.0-4.8) k/uL Monocytes # (0-1.0) k/uL Eosinophils # (0-0.7) k/uL Basophils # (0-0.2) k/uL Manual Slide Review Polychromasia Hypochromasia Poikilocytosis Anisocytosis Macrocytosis PT (10.0-12.5) sec INR (<1.2) APTT (22.0-30.0) sec Sodium 136 L (137-145) mmol/L Potassium 4.2 (3.5-5.1) mmol/L Chloride 114 H (98-107) mmol/L Carbon Dioxide 17 L (22-30) mmol/L Anion Gap 5 mmol/L BUN 55 H (7-17) mg/dL Creatinine 2.03 H (0.52-1.04) mg/dL Est GFR (CKD-EPI)AfAm 33 (>60 ml/min/1.73 sqM) Est GFR (CKD-EPI)NonAf 29 (>60 ml/min/1.73 sqM) Glucose 61 L (74-99) mg/dL Plasma Lactic Acid Gold 1.3 (0.7-2.0) mmol/L Calcium 7.1 L (8.4-10.2) mg/dL Phosphorus 4.4 (2.5-4.5) mg/dL Magnesium 2.4 H (1.6-2.3) mg/dL Total Bilirubin 0.8 (0.2-1.3) mg/dL AST 10 L (14-36) U/L ALT 7 (4-34) U/L Alkaline Phosphatase 158 H (38-126) U/L Troponin I 0.018 (0.000-0.034) ng/mL Total Protein 4.2 L (6.3-8.2) g/dL Albumin 1.7 L (3.5-5.0) g/dL TSH 0.896 (0.465-4.680) mIU/L Cortisol Cancelled Urine Color Urine Appearance (Clear) Urine pH (5.0-8.0) Ur Specific [place] (1.001-1.035) Urine Protein (Negative) Urine Glucose (UA) (Negative) Urine Ketones (Negative) Urine Blood (Negative) Urine Nitrite (Negative) Urine Bilirubin (Negative) Urine Urobilinogen (<2.0) mg/dL Ur Leukocyte Esterase (Negative) Urine RBC (0-5) /hpf Urine WBC (0-5) /hpf Urine Bacteria (None) /hpf Hyaline Casts (0-2) /lpf Urine Mucus (None) /hpf Influenza Type A (PCR) (Not Detectd) Influenza Type B (PCR) (Not Detectd) RSV (PCR) (Not Detectd) SARS-CoV-2 (PCR) (Not Detectd) 12/29/23 Range/Units 14:36 WBC (3.8-10.6) k/uL RBC (3.80-5.40) m/uL Hgb (11.4-16.0) gm/dL Hct (34.0-46.0) % MCV (80.0-100.0) fL MCH (25.0-35.0) pg MCHC (31.0-37.0) g/dL RDW (11.5-15.5) % Plt Count (150-450) k/uL MPV Neutrophils % % Lymphocytes % % Monocytes % % Eosinophils % % Basophils % % Neutrophils # (1.3-7.7) k/uL Lymphocytes # (1.0-4.8) k/uL Monocytes # (0-1.0) k/uL Eosinophils # (0-0.7) k/uL Basophils # (0-0.2) k/uL Manual Slide Review Polychromasia Hypochromasia Poikilocytosis Anisocytosis Macrocytosis PT (10.0-12.5) sec INR (<1.2) APTT (22.0-30.0) sec Sodium (137-145) mmol/L Potassium (3.5-5.1) mmol/L Chloride (98-107) mmol/L Carbon Dioxide (22-30) mmol/L Anion Gap mmol/L BUN (7-17) mg/dL Creatinine (0.52-1.04) mg/dL Est GFR (CKD-EPI)AfAm (>60 ml/min/1.73 sqM) Est GFR (CKD-EPI)NonAf (>60 ml/min/1.73 sqM) Glucose (74-99) mg/dL Plasma Lactic Acid Gold (0.7-2.0) mmol/L Calcium (8.4-10.2) mg/dL Phosphorus (2.5-4.5) mg/dL Magnesium (1.6-2.3) mg/dL Total Bilirubin (0.2-1.3) mg/dL AST (14-36) U/L ALT (4-34) U/L Alkaline Phosphatase (38-126) U/L Troponin I (0.000-0.034) ng/mL Total Protein (6.3-8.2) g/dL Albumin (3.5-5.0) g/dL TSH (0.465-4.680) mIU/L Cortisol Urine Color Colorless Urine Appearance Clear (Clear) Urine pH 5.0 (5.0-8.0) Ur Specific [place] 1.008 (1.001-1.035) Urine Protein Negative (Negative) Urine Glucose (UA) Negative (Negative) Urine Ketones Negative (Negative) Urine Blood Small H (Negative) Urine Nitrite Negative (Negative) Urine Bilirubin Negative (Negative) Urine Urobilinogen <2.0 (<2.0) mg/dL Ur Leukocyte Esterase Large H (Negative) Urine RBC 8 H (0-5) /hpf Urine WBC 6 H (0-5) /hpf Urine Bacteria Few H (None) /hpf Hyaline Casts 4 H (0-2) /lpf Urine Mucus Rare H (None) /hpf Influenza Type A (PCR) (Not Detectd) Influenza Type B (PCR) (Not Detectd) RSV (PCR) (Not Detectd) SARS-CoV-2 (PCR) (Not Detectd) Disposition Clinical Impression: Acute kidney injury, Thrombocytopenia Disposition: ADMITTED IP TO THIS HOSP Condition: Serious Is patient prescribed a controlled substance at d/c from ED?: No Time of Disposition: 16:46
[2023-12-29] MEDS: SODIUM CHLORIDE 0.9% 500 ML 500 ML IV STA (13:19)
[2023-12-29] MEDS: SODIUM CHLORIDE 0.9% 1,000 ML IV STA ×2 (13:19→14:50)
[2023-12-29] MEDS: HYDROCORTISONE SUCCINATE 100 MG/2 ML VIAL IV STA (13:22)
[2023-12-29 14:24] LABS: Anisocytosis Slight; Basophils % (A) 0 %; Eosinophils % (A) 1 %; HCT 22.7 % (34.0-46.0); HGB 7.3 gm/dL (11.4-16.0); Hypochromasia Marked; Lymphocytes # (A) 0.6 k/uL (1.0-4.8); Lymphocytes % (A) 15 %; MCH 38.7 pg (25.0-35.0); MCHC 32.3 g/dL (31.0-37.0); MCV 120.1 fL (80.0-100.0); Macrocytosis Marked; Mean Platelet Volume 13.7; Monocytes # (A) 0.2 k/uL (0-1.0); Monocytes % (A) 4 %; Neutrophils # (A) 3.4 k/uL (1.3-7.7); Neutrophils % (A) 80 %; Poikilocytosis Slight; RBC 1.89 m/uL (3.80-5.40); RDW 16.8 % (11.5-15.5); WBC 4.3 k/uL (3.8-10.6)
[2023-12-29 14:31] LABS: ALT 7 U/L (4-34); AST 10 U/L (14-36); African American GFR (CKD) 33 (>60 ml/min/1.73 sqM); Albumin 1.7 g/dL (3.5-5.0); Alkaline Phosphatase 158 U/L (38-126); Anion Gap 5 mmol/L; Blood Urea Nitrogen 55 mg/dL (7-17); Calcium 7.1 mg/dL (8.4-10.2); Carbon Dioxide 17 mmol/L (22-30); Chloride 114 mmol/L (98-107); Glucose 61 mg/dL (74-99); Magnesium 2.4 mg/dL (1.6-2.3); Non-African American GFR(CKD) 29 (>60 ml/min/1.73 sqM); Phosphorus 4.4 mg/dL (2.5-4.5); Potassium 4.2 mmol/L (3.5-5.1); Sodium 136 mmol/L (137-145); Total Bilirubin 0.8 mg/dL (0.2-1.3); Total Protein 4.2 g/dL (6.3-8.2)
[2023-12-29 14:35] LABS: INR 1.2 (<1.2); Partial Thromboplastin Time 28.6 sec (22.0-30.0); Prothrombin Time 12.3 sec (10.0-12.5)
[2023-12-29] MEDS: MIDODRINE 5 MG TAB PO STA (14:47)
[2023-12-29 14:53] LABS: Platelet Count 24 k/uL (150-450); Polychromasia Present
[2023-12-29 15:02] LABS: Appearance,Urine Clear (Clear); Bacteria,Urine Few /hpf; Bilirubin,Urine Negative (Negative); Blood,Urine Small (Negative); Color,Urine Colorless; Glucose,Urine (UA) Negative (Negative); Hyaline Casts,Urine 4 /lpf (0-2); Ketones,Urine Negative (Negative); Leukocyte Esterase,Urine Large (Negative); Mucus,Urine Rare /hpf; Nitrite,Urine Negative (Negative); Protein,Urine Negative (Negative); RBC,Urine 8 /hpf (0-5); Specific Gravity,Urine 1.008 (1.001-1.035); Urobilinogen,Urine <2.0 mg/dL (<2.0); WBC,Urine 6 /hpf (0-5)
[2023-12-29] MEDS ORDERED: NALOXONE 0.4 MG/ML 1 ML VIAL IV PRN (16:46)
[2023-12-29] MEDS ORDERED: ACETAMINOPHEN TAB 325 MG TAB PO PRN (16:46)
[2023-12-29] MEDS: SODIUM CHLORIDE 0.9% 1,000 ML IV SCH (17:47)
[2023-12-29] MEDS: MIDODRINE 5 MG TAB PO SCH (17:48)
--- NOTE | 2023-12-29 19:25 | XR ---
EXAMINATION TYPE: XR chest 2V DATE OF EXAM: 12/29/2023 3:15 PM CLINICAL INDICATION:Female, 48 years old with history of Weakness; [facility] COMPARISON: Chest radiographs from 12/15/2015 TECHNIQUE: XR chest 2V Frontal and lateral views of the chest. FINDINGS: Lungs/Pleura: Subsegmental atelectasis is present in the lung bases. Scarring is identified in the ri ght midlung. Trace left pleural effusion. No evidence of pneumothorax. Pulmonary vascularity: Unremarkable. Heart/mediastinum: Cardiomediastinal silhouette is unremarkable. Suspected small hiatal hernia. Musculoskeletal: No acute osseous pathology. IMPRESSION: Trace left pleural effusion and chronic changes of the lungs.
--- NOTE | 2023-12-29 19:26 | XR ---
EXAMINATION TYPE: XR tibia fibula RT DATE OF EXAM: 12/29/2023 3:15 PM CLINICAL INDICATION:Female, 48 years old with history of infection; H COMPARISON: None TECHNIQUE: The right tibia/fibula was examined in AP and lateral projections. FINDINGS: No evidence of any acute osseous pathology, joint dislocation. Soft tissue edema is noted s urrounding the lower extremity. No definitive foci of gas present. No radiopaque foreign bodies ident ified. IMPRESSION: 1. No evidence of osteoporosis. 2. Superficial soft tissue edema surrounding the right lower leg.
--- NOTE | 2023-12-29 19:27 | XR ---
EXAMINATION TYPE: XR femur RT DATE OF EXAM: 12/29/2023 3:15 PM CLINICAL INDICATION:Female, 48 years old with history of infection; [facility] COMPARISON: None TECHNIQUE: The right femur was examined in Frontal and lateral projections. FINDINGS: No evidence of acute osseous pathology, joint dislocation, or soft tissue swelling . Posts urgical clips noted in the right inguinal region. IMPRESSION: No acute osseous pathology.
[2023-12-29] MEDS ORDERED: CALCIUM CARBONATE 500 MG CHEWABLE PO PRN (19:41)
[2023-12-29] MEDS: HYDROCORTISONE SUCCINATE 100 MG/2 ML VIAL IV SCH (20:37)
[2023-12-29] MEDS: GABAPENTIN 300 MG CAP PO SCH (20:39)
[2023-12-29] MEDS: ALBUMIN HUMAN 25% 50 ML in EMPTY BAG 1 BAG IVPB SCH (20:45)
[2023-12-29 23:08] LABS: Anisocytosis Slight; Basophils % (A) 0 %; Eosinophils % (A) 0 %; Hypochromasia Marked; Lymphocytes # (A) 0.2 k/uL (1.0-4.8); Lymphocytes % (A) 8 %; MCH 36.9 pg (25.0-35.0); MCHC 30.9 g/dL (31.0-37.0); MCV 119.5 fL (80.0-100.0); Mean Platelet Volume 11.6; Monocytes # (A) 0.1 k/uL (0-1.0); Monocytes % (A) 2 %; Neutrophils # (A) 2.6 k/uL (1.3-7.7); Neutrophils % (A) 89 %; Poikilocytosis Slight; RBC 1.67 m/uL (3.80-5.40); RDW 16.4 % (11.5-15.5); WBC 2.9 k/uL (3.8-10.6)
[2023-12-29 23:20] LABS: Glucose,Whole Blood 62 mg/dL (70-110)
[2023-12-29 23:24] LABS: HCT 19.9 % (34.0-46.0); HGB 6.2 gm/dL (11.4-16.0); Macrocytosis Marked; Platelet Count 23 k/uL (150-450)
[2023-12-29] MEDS: DEXTROSE 50% SYRINGE 50 ML IVP PRN (23:35)
[2023-12-29 23:54] LABS: Glucose,Whole Blood 205 mg/dL (70-110)
[2023-12-30 00:55] LABS: Glucose,Whole Blood 88 mg/dL (70-110)
[2023-12-30] MEDS: SODIUM CHLORIDE 0.9% 500 ML 500 ML IV ONE (04:34)
[2023-12-30 04:48] LABS: Glucose,Whole Blood 80 mg/dL (70-110)
[2023-12-30] MEDS: SODIUM CHLORIDE 0.9% 1,000 ML IV STA (05:00)
[2023-12-30] MEDS: LEVOTHYROXINE 100 MCG TAB PO SCH (05:31)
[2023-12-30 07:25] LABS: Glucose,Whole Blood 66 mg/dL (70-110)
[2023-12-30 08:00] LABS: Glucose,Whole Blood 97 mg/dL (70-110)
[2023-12-30] MEDS ORDERED: NON FORMULARY DRUG (Lactose-Reduced Food [Ensure Plus] 237 ML Ml) PO SCH (09:00)
[2023-12-30 09:13] LABS: Glucose,Whole Blood 101 mg/dL (70-110)
[2023-12-30] MEDS: PANTOPRAZOLE 40 MG/10 ML VIAL IV SCH (09:14)
[2023-12-30] MEDS: VORTIOXETINE HYDROBROMIDE 20 MG TABLET PO SCH (09:18)
[2023-12-30 09:21] LABS: Anisocytosis Moderate; Basophils % (A) 0 %; Eosinophils % (A) 0 %; HCT 24.4 % (34.0-46.0); HGB 7.1 gm/dL (11.4-16.0); Hypochromasia Marked; Lymphocytes # (A) 0.4 k/uL (1.0-4.8); Lymphocytes % (A) 15 %; MCH 32.1 pg (25.0-35.0); MCHC 29.1 g/dL (31.0-37.0); MCV 110.4 fL (80.0-100.0); Macrocytosis Marked; Mean Platelet Volume 14.5; Monocytes # (A) 0.1 k/uL (0-1.0); Monocytes % (A) 3 %; Neutrophils # (A) 2.5 k/uL (1.3-7.7); Neutrophils % (A) 82 %; Poikilocytosis Slight; RBC 2.21 m/uL (3.80-5.40); RDW 22.1 % (11.5-15.5)
[2023-12-30 09:22] LABS: Platelet Count 15 k/uL (150-450)
[2023-12-30 10:05] LABS: Chloride 118 mmol/L (98-107)
[2023-12-30 10:09] LABS: ALT 7 U/L (4-34); AST 16 U/L (14-36); African American GFR (CKD) 45 (>60 ml/min/1.73 sqM); Albumin 1.9 g/dL (3.5-5.0); Alkaline Phosphatase 120 U/L (38-126); Anion Gap 9 mmol/L; Blood Urea Nitrogen 48 mg/dL (7-17); C Reactive Protein 5.4 mg/dL (<1.0); Carbon Dioxide 13 mmol/L (22-30); Glucose 137 mg/dL (74-99); Magnesium 2.3 mg/dL (1.6-2.3); Non-African American GFR(CKD) 39 (>60 ml/min/1.73 sqM); Phosphorus 4.6 mg/dL (2.5-4.5); Potassium 4.3 mmol/L (3.5-5.1); Sodium 140 mmol/L (137-145); Total Protein 4.3 g/dL (6.3-8.2)
[2023-12-30 10:31] LABS: NT-Pro-B-Type Natriuretic Pept 4990 pg/mL
[2023-12-30 11:11] LABS: Toxic Granulation Present
[2023-12-30 12:47] LABS: INR 1.2 (<1.2); Prothrombin Time 13.1 sec (10.0-12.5)
--- NOTE | 2023-12-30 13:50 | P.HPIM ---
History of Present Illness H&P Date: 12/30/23 Chief Complaint: Weakness Patient is a 48-year-old female with a past medical history of hepatomegaly, liver cirrhosis, hypothyroidism, adrenal insufficiency on Cortef, iron d eficiency anemia and chronic thrombocytopenia was brought to the hospital from group home due to patient being incoherent and delirious results having generalized weakness. Patient has been having symptoms for the past 4 days and has been worsening. Patient was also hypotensive at the facility. Patient cannot provide any history at this time. Current to the family patient had a fall recently and has been having back pain. She is on Flexeril, gabapentin and [place] 5 every 6 at the facility. Patient was recently admitted to the hospital for lower extremity cellulitis m ainly right side. Patient was seen by hematology as an outpatient due to anemia and thrombocythemia which is thought to be due to chronic liver disease. Patient is on Lasix and spironolactone and is also on midodrine at home. patient is afebrile. On admission patient was hypotensive with blood pressure 74/44 pulse is 101 respiration 16 and pulse ox 93% on room air. Chest x-ray showed trace left pleural effusion and chronic changes of the lungs. EKG showed sinus rhythm with heart rate 97 and x-ray of the tibia and fibula showed no evidence of osteoporosis. Superficial soft tissue edema surrounding the right lower leg. X-ray of the femur showed no acute osseous pathology. Laboratory data showed WBC 4.3 on admission, hemoglobin 7.3 and dropped down to 6.2 last night. Platelet count 24 Sodium 136 potassium 4.2 chloride 114 bicarb is 17 BUN 25 and creatinine 2.03 and blood sugar 61 calcium 7.1 phosphorus 4.4 magnesium 2.4 AST cortisol level 126. Urinalysis showed small blood large leukocyte esterase with RBCs 8 and WBC 6. Influenza AB COVID-19 PCR and RSV negative. Review of Systems ROS unobtainable: due to mental status Past Medical History Past Medical History: GERD/Reflux, Osteoarthritis (OA), Thyroid Disorder Additional Past Medical History / Comment(s): enlarged liver and spleen,hx. iron deficiency anemia, recent change in bowel movements , abdominal pain, nausea, blood clots post covid History of Any Multi-Drug Resistant Organisms: CRE, Other MDRO Date of last positivie culture/infection: 10/14/23 MDRO Carbapenem NOT Detected per [facility] MDRO Source:: Urine Past Surgical History: Bariatric Surgery, Section, Cholecystectomy, T ubal Ligation Additional Past Surgical History / Comment(s): Bariatric revision duodenum switch 2015,2000 Aneesh-en-Y gastric bypass, 3 c-sections. PANECTOMY. Past Anesthesia/Blood Transfusion Reactions: Family Hisory of Malignant Hyperthermia Additional Past Anesthesia/Blood Transfusion Reaction / Comment(s): 1rst cousin hx malignant hyperthermia as child.Pt has had anesthesia in past without problems Past Psychological History: Depression Smoking Status: Never smoker - Past Family History Mother Family Medical History: No Reported History Medications and Allergies Home Medications Medication Instructions Recorded Confirmed Type Vortioxetine Hydrobromide 20 mg PO DAILY@0900 02/17/12/29/23 History [Trintellix] Calcium Carbonate [Tums] 1,000 mg PO TID PRN 12/29/23 12/29/23 History Cyclobenzaprine [Flexeril] 10 mg PO TID PRN 12/29/23 12/29/23 History Furosemide [Lasix] 20 mg PO DAILY@1300 12/29/23 12/29/23 History Furosemide [Lasix] 40 mg PO DAILY@0600 12/29/23 12/29/23 History Gabapentin [Neurontin] 300 mg PO HS@2100 12/29/23 12/29/23 History HYDROcodone/APAP 5-325MG [[place] 1 tab PO Q6H PRN 12/29/23 12/29/23 History 5-325] Hydrocortisone [Cortef] 20 mg PO DAILY@0900 12/29/23 12/29/23 History Lactose-Reduced Food [Ensure Plus] 1 can PO DAILY@0900 12/29/23 12/29/23 History Levothyroxine Sodium [Synthroid] 200 mcg PO DAILY@0600 12/29/23 12/29/23 History Miconazole Nitrate Powder 2% 1 applic TOPICAL Q12H 12/29/23 12/29/23 History Midodrine HCl [ProAmatine] 10 mg PO TID-W/MEALS@08,12,17 12/29/23 12/29/23 History Nystatin 100,000 Unit/gm Powd 1 applic TOPICAL BID 12/29/23 12/29/23 History [Mycostatin Powder] Ondansetron [Zofran] 4 mg PO Q6H PRN 12/29/23 12/29/23 History Potassium Chloride ER [K-Dur 20] 20 meq PO DAILY@0600 12/29/23 12/29/23 History Spironolactone [Aldactone] 12.5 mg PO DAILY@0900 12/29/23 12/29/23 History Therahoney External Gel 1 applic TOPICAL DAILY PRN 12/29/23 12/29/23 History Therahoney External Gel 1 applic TOPICAL DAILY PRN 12/29/23 12/29/23 History Therahoney External Gel 1 applic TOPICAL HS 12/29/23 12/29/23 History Therahoney External Gel 1 applic TOPICAL HS 12/29/23 12/29/23 History Z-Guard 1 applic TOPICAL BID 12/29/23 12/29/23 History Z-Guard 1 applic TOPICAL DAILY PRN 12/29/23 12/29/23 History Allergies Allergy/AdvReac Type Severity Reaction Status Date / Time No Known Allergies Allergy Verified 12/29/23 14:04 Physical Exam Vitals: Vital Signs Temp Pulse Resp BP Pulse Ox 12/30/23 09:06 66 16 70/47 12/30/23 08:16 68 18 78/50 98 12/30/23 07:49 69 18 12/30/23 07:20 73 16 77/49 100 12/30/23 06:59 68 22 78/50 92 L 12/30/23 06:12 73 22 81/44 94 L 12/30/23 05:36 73 20 78/55 93 L 12/30/23 04:59 97.9 F 77 16 78/53 12/30/23 04:10 97.6 F 79 22 79/61 99 12/30/23 03:40 97.6 F 73 22 81/52 99 12/30/23 03:25 97.5 F L 77 20 83/46 12/30/23 03:10 97.6 F 77 20 79/50 99 12/30/23 02:55 97.5 F L 71 22 82/44 12/30/23 02:31 97.5 F L 76 20 80/51 99 12/30/23 02:16 97.6 F 79 16 84/52 12/30/23 00:59 77 18 84/45 99 12/29/23 23:03 75 20 82/45 100 12/29/23 21:32 77 20 86/50 100 12/29/23 20:41 84 18 86/49 12/29/23 17:51 90 16 81/43 100 12/29/23 17:00 83 14 79/51 94 L 12/29/23 16:30 86 16 84/40 94 L 12/29/23 16:00 87 14 79/45 95 12/29/23 15:23 86 16 80/48 100 12/29/23 14:51 89 16 76/43 97 12/29/23 14:49 97 12/29/23 14:30 97.6 F 93 12 75/46 85 L 12/29/23 14:00 99 13 80/46 12/29/23 13:30 98 11 L 73/45 12/29/23 13:28 101 H 23 12/29/23 12:33 97.9 F 99 16 74/44 93 L Intake and Output 12/29/23 12/30/23 12/30/23 22:59 06:59 14:59 Intake Total 280 Output Total 900 Balance -620 Intake: Blood Product 280 Rc Pheresis As-3 Unit 280 [id number] Output: Urine 900 PHYSICAL EXAMINATION: Patient is is lethargic and drowsy in the morning. Unable to provide any history... HEENT: Normocephalic. Neck is supple. Pupils reactive. Nostrils clear. Oral cavity is dry. Neck reveals no JVD, carotid bruits, or thyromegaly. CHEST EXAMINATION: Trachea is central. Symmetrical expansion. Bibasilar diminished sounds. CARDIAC: Normal S1, S2 with no gallops. No murmurs ABDOMEN: Soft. Bowel sounds present. Nontender. No organomegaly. No abdominal b ruits. Extremities: Bilateral lower extremity 2+ edema with right lower extremity redness and warmth.. No clubbing or cyanosis Neurologically patient is awake alert and oriented x 0. No gross focal neurological deficits. Skin: No rash or skin lesions other than described above. Psychiatric: Could not be sensitive completely Musculoskeletal: No joint swelling or deformity. Results CBC & Chem 7: 12/30/23 07:45 12/30/23 08:11 Labs: Abnormal Lab Results - Last 24 Hours (Table) 12/29/23 12/29/23 12/29/23 Range/Units 13:59 13:59 13:59 WBC (3.8-10.6) k/uL RBC 1.89 L (3.80-5.40) m/uL Hgb 7.3 L (11.4-16.0) gm/dL Hct 22.7 L (34.0-46.0) % MCV 120.1 H (80.0-100.0) fL MCH 38.7 H (25.0-35.0) pg MCHC (31.0-37.0) g/dL RDW 16.8 H (11.5-15.5) % Plt Count 24 L (150-450) k/uL Lymphocytes # 0.6 L (1.0-4.8) k/uL Macrocytosis Marked A INR 1.2 H (<1.2) Sodium 136 L (137-145) mmol/L Chloride 114 H (98-107) mmol/L Carbon Dioxide 17 L (22-30) mmol/L BUN 55 H (7-17) mg/dL Creatinine 2.03 H (0.52-1.04) mg/dL Glucose 61 L (74-99) mg/dL POC Glucose (mg/dL) (70-110) mg/dL Plasma Lactic Acid Gold (0.7-2.0) mmol/L Calcium 7.1 L (8.4-10.2) mg/dL Magnesium 2.4 H (1.6-2.3) mg/dL AST 10 L (14-36) U/L Alkaline Phosphatase 158 H (38-126) U/L Total Protein 4.2 L (6.3-8.2) g/dL Albumin 1.7 L (3.5-5.0) g/dL Procalcitonin (0.02-0.09) ng/mL Cortisol (3.1-22.4) UG/DL Urine Blood (Negative) Ur Leukocyte Esterase (Negative) Urine RBC (0-5) /hpf Urine WBC (0-5) /hpf Urine Bacteria (None) /hpf Hyaline Casts (0-2) /lpf Urine Mucus (None) /hpf Crossmatch 12/29/23 12/29/23 12/29/23 Range/Units 14:36 16:38 22:50 WBC 2.9 L (3.8-10.6) k/uL RBC 1.67 L (3.80-5.40) m/uL Hgb 6.2 L* (11.4-16.0) gm/dL Hct 19.9 L* (34.0-46.0) % MCV 119.5 H (80.0-100.0) fL MCH 36.9 H (25.0-35.0) pg MCHC 30.9 L (31.0-37.0) g/dL RDW 16.4 H (11.5-15.5) % Plt Count 23 L (150-450) k/uL Lymphocytes # 0.2 L (1.0-4.8) k/uL Macrocytosis Marked A INR (<1.2) Sodium (137-145) mmol/L Chloride (98-107) mmol/L Carbon Dioxide (22-30) mmol/L BUN (7-17) mg/dL Creatinine (0.52-1.04) mg/dL Glucose (74-99) mg/dL POC Glucose (mg/dL) (70-110) mg/dL Plasma Lactic Acid Gold (0.7-2.0) mmol/L Calcium (8.4-10.2) mg/dL Magnesium (1.6-2.3) mg/dL AST (14-36) U/L Alkaline Phosphatase (38-126) U/L Total Protein (6.3-8.2) g/dL Albumin (3.5-5.0) g/dL Procalcitonin (0.02-0.09) ng/mL Cortisol 126.0 H (3.1-22.4) UG/DL Urine Blood Small H (Negative) Ur Leukocyte Esterase Large H (Negative) Urine RBC 8 H (0-5) /hpf Urine WBC 6 H (0-5) /hpf Urine Bacteria Few H (None) /hpf Hyaline Casts 4 H (0-2) /lpf Urine Mucus Rare H (None) /hpf Crossmatch 12/29/23 12/29/23 12/29/23 Range/Units 23:18 23:50 23:53 WBC (3.8-10.6) k/uL RBC (3.80-5.40) m/uL Hgb (11.4-16.0) gm/dL Hct (34.0-46.0) % MCV (80.0-100.0) fL MCH (25.0-35.0) pg MCHC (31.0-37.0) g/dL RDW (11.5-15.5) % Plt Count (150-450) k/uL Lymphocytes # (1.0-4.8) k/uL Macrocytosis INR (<1.2) Sodium (137-145) mmol/L Chloride (98-107) mmol/L Carbon Dioxide (22-30) mmol/L BUN (7-17) mg/dL Creatinine (0.52-1.04) mg/dL Glucose (74-99) mg/dL POC Glucose (mg/dL) 62 L 205 H (70-110) mg/dL Plasma Lactic Acid Gold (0.7-2.0) mmol/L Calcium (8.4-10.2) mg/dL Magnesium (1.6-2.3) mg/dL AST (14-36) U/L Alkaline Phosphatase (38-126) U/L Total Protein (6.3-8.2) g/dL Albumin (3.5-5.0) g/dL Procalcitonin (0.02-0.09) ng/mL Cortisol (3.1-22.4) UG/DL Urine Blood (Negative) Ur Leukocyte Esterase (Negative) Urine RBC (0-5) /hpf Urine WBC (0-5) /hpf Urine Bacteria (None) /hpf Hyaline Casts (0-2) /lpf Urine Mucus (None) /hpf Crossmatch See Detail 12/30/23 12/30/23 12/30/23 Range/Units 05:02 07:23 07:44 WBC (3.8-10.6) k/uL RBC (3.80-5.40) m/uL Hgb (11.4-16.0) gm/dL Hct (34.0-46.0) % MCV (80.0-100.0) fL MCH (25.0-35.0) pg MCHC (31.0-37.0) g/dL RDW (11.5-15.5) % Plt Count (150-450) k/uL Lymphocytes # (1.0-4.8) k/uL Macrocytosis INR (<1.2) Sodium (137-145) mmol/L Chloride (98-107) mmol/L Carbon Dioxide (22-30) mmol/L BUN (7-17) mg/dL Creatinine (0.52-1.04) mg/dL Glucose (74-99) mg/dL POC Glucose (mg/dL) 66 L (70-110) mg/dL Plasma Lactic Acid Gold 2.2 H* (0.7-2.0) mmol/L Calcium (8.4-10.2) mg/dL Magnesium (1.6-2.3) mg/dL AST (14-36) U/L Alkaline Phosphatase (38-126) U/L Total Protein (6.3-8.2) g/dL Albumin (3.5-5.0) g/dL Procalcitonin 0.25 H (0.02-0.09) ng/mL Cortisol (3.1-22.4) UG/DL Urine Blood (Negative) Ur Leukocyte Esterase (Negative) Urine RBC (0-5) /hpf Urine WBC (0-5) /hpf Urine Bacteria (None) /hpf Hyaline Casts (0-2) /lpf Urine Mucus (None) /hpf Crossmatch 12/30/23 Range/Units 07:45 WBC 3.0 L (3.8-10.6) k/uL RBC 2.21 L (3.80-5.40) m/uL Hgb 7.1 L (11.4-16.0) gm/dL Hct 24.4 L (34.0-46.0) % MCV 110.4 H D (80.0-100.0) fL MCH (25.0-35.0) pg MCHC 29.1 L (31.0-37.0) g/dL RDW 22.1 H (11.5-15.5) % Plt Count 15 L* (150-450) k/uL Lymphocytes # (1.0-4.8) k/uL Macrocytosis Marked A INR (<1.2) Sodium (137-145) mmol/L Chloride (98-107) mmol/L Carbon Dioxide (22-30) mmol/L BUN (7-17) mg/dL Creatinine (0.52-1.04) mg/dL Glucose (74-99) mg/dL POC Glucose (mg/dL) (70-110) mg/dL Plasma Lactic Acid Gold (0.7-2.0) mmol/L Calcium (8.4-10.2) mg/dL Magnesium (1.6-2.3) mg/dL AST (14-36) U/L Alkaline Phosphatase (38-126) U/L Total Protein (6.3-8.2) g/dL Albumin (3.5-5.0) g/dL Procalcitonin (0.02-0.09) ng/mL Cortisol (3.1-22.4) UG/DL Urine Blood (Negative) Ur Leukocyte Esterase (Negative) Urine RBC (0-5) /hpf Urine WBC (0-5) /hpf Urine Bacteria (None) /hpf Hyaline Casts (0-2) /lpf Urine Mucus (None) /hpf Crossmatch Thrombosis Risk Factor Assmnt - DVT/VTE Prophylaxis DVT/VTE Prophylaxis: Mechanical Prophylaxis ordered Assessment and Plan Assessment: Altered mental status due to metabolic and toxic encephalopathy Acute kidney injury due to ATN secondary to hypotension and hemodynamic instab ility. Creatinine 2.03 on admission. 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 Patient was started back on midodrine. Narcotic pain medications will be on hold. Follow-up renal function and transfuse if hemoglobin less than 7 and platelets less than 10 Urinalysis is negative for infection. Patient will be continued on antibiotics cefazolin Hematology and ID is on board. Critical care team was also consulted due to hypotension despite fluid resuscitation. Follow-up closely. Prognosis is guarded at this time. Discussed with the family at bedside in detail. Time with Patient: Greater than 30
--- NOTE | 2023-12-30 15:23 | P.CNPUL ---
History of Present Illness Consult date: 12/30/23 Requesting physician: Laney Gaines Reason for consult: other (Hypotension and altered mental status) Chief complaint: Weakness History of present illness: This is a 48-year-old female known history of multiple medical problems including liver cirrhosis, adrenal insufficiency maintained normally on Cortef, hypothyroidism, iron deficiency anemia, chronic thrombocytopenia secondary to liver cirrhosis, patient was brought in from [facility] because of mental status change and generalized weakness. Symptoms have been getting worse over the last 4 days, patient was seen in the ER, she presented with profound hypotension, given multiple fluid boluses, received 100 mg of Solu-Cortef, pat ient apparently was recently at [facility], and she was treated for cellulitis according to her in addition to her cellulitis, patient is also known to have history of ascites, maintained on Aldactone and Lasix. She is also on midodrine for low blood pressure normally. I saw this patient in the ER, she could not give much history, obtained minimal history from the and apparently she was recently at [facility], after evaluating the patient, I recommended more fluids to be given, I also recommended admitting the patient to the ICU instead of admitting the patient to regular medical floor. Considering her mental status, I recommended a CT of the brain without contrast. Labs in the ER were reviewed, WBC count is 3 hemoglobin 7.1 platelets are 15,000. Hematology consultation is pending. Patient had a low bicarb of 13 however is a none anion gap metabolic acidosis. BUN is 48 creatinine is 1.58, it is not clear to me what is her baseline renal functioning from her last admission at [facility]. Lactic acid was noted to be 0.6. Chest x-ray is showing possibly mild interstitial edema, BNP level is 4990 Review of Systems ROS unobtainable: due to mental status Past Medical History Past Medical History: GERD/Reflux, Osteoarthritis (OA), Thyroid Disorder Additional Past Medical History / Comment(s): enlarged liver and spleen,hx. iron deficiency anemia, recent change in bowel movements , abdominal pain, nausea, blood clots post covid History of Any Multi-Drug Resistant Organisms: CRE, Other MDRO Date of last positivie culture/infection: 10/14/23 MDRO Carbapenem NOT Detected per [facility] MDRO Source:: Urine Past Surgical History: Bariatric Surgery, Section, Cholecystectomy, Tubal Ligation Additional Past Surgical History / Comment(s): Bariatric revision duodenum switch Aneesh-en-Y gastric bypass, 3 c-sections. PANECTOMY. Past Anesthesia/Blood Transfusion Reactions: Family Hisory of Malignant Hyperthermia Additional Past Anesthesia/Blood Transfusion Reaction / Comment(s): 1rst cousin hx malignant hyperthermia as child.Pt has had anesthesia in past without problems Past Psychological History: Depression Smoking Status: Never smoker - Past Family History Mother Family Medical History: No Reported History Medications and Allergies Home Medications Medication Instructions Recorded Confirmed Type Vortioxetine Hydrobromide 20 mg PO DAILY@0900 02/17/18 12/29/23 History [Trintellix] Calcium Carbonate [Tums] 1,000 mg PO TID PRN 12/29/23 12/29/23 History Cyclobenzaprine [Flexeril] 10 mg PO TID PRN 12/29/23 12/29/23 History Furosemide [Lasix] 20 mg PO DAILY@1300 12/29/23 12/29/23 History Furosemide [Lasix] 40 mg PO DAILY@0612/29/23 12/29/23 History Gabapentin [Neurontin] 300 mg PO HS@2100 12/29/23 12/29/23 History HYDROcodone/APAP 5-325MG [[place] 1 tab PO Q6H PRN 12/29/23 12/29/23 History 5-325] Hydrocortisone [Cortef] 20 mg PO DAILY@0912/29/23 12/29/23 History Lactose-Reduced Food [Ensure Plus] 1 can PO DAILY@89912/29/23 12/29/23 History Levothyroxine Sodium [Synthroid] 200 mcg PO DAILY@0600 12/29/23 12/29/23 History Miconazole Nitrate Powder 2% 1 applic TOPICAL Q12H 12/29/23 12/29/23 History Midodrine HCl [ProAmatine] 10 mg PO TID-W/MEALS@08,12,17 12/29/23 12/29/23 History Nystatin 100,000 Unit/gm Powd 1 applic TOPICAL BID 12/29/23 12/29/23 History [Mycostatin Powder] Ondansetron [Zofran] 4 mg PO Q6H PRN 12/29/23 12/29/23 History Potassium Chloride ER [K-Dur 20] 20 meq PO DAILY@0600 12/29/23 12/29/23 History Spironolactone [Aldactone] 12.5 mg PO DAILY@0900 12/29/23 12/29/23 History Therahoney External Gel 1 applic TOPICAL DAILY PRN 12/29/23 12/29/23 History Therahoney External Gel 1 applic TOPICAL DAILY PRN 12/29/23 12/29/23 History Therahoney External Gel 1 applic TOPICAL HS 12/29/23 12/29/23 History Therahoney External Gel 1 applic TOPICAL HS 12/29/23 12/29/23 History Z-Guard 1 applic TOPICAL BID 12/29/23 12/29/23 History Z-Guard 1 applic TOPICAL DAILY PRN 12/29/23 12/29/23 History Allergies Allergy/AdvReac Type Severity Reaction Status Date / Time No Known Allergies Allergy Verified 12/29/23 14:04 Physical Exam Vitals: Vital Signs Temp Pulse Resp BP Pulse Ox 12/30/23 14:00 72 12 83/51 100 12/30/23 13:30 69 10 L 79/45 100 12/30/23 13:00 67 12 68/54 100 12/30/23 12:00 70 18 79/51 96 12/30/23 11:00 69 12 76/56 100 12/30/23 09:06 66 16 70/47 12/30/23 08:16 68 18 78/50 98 12/30/23 07:49 69 18 12/30/23 07:20 73 16 77/49 100 12/30/23 06:59 68 22 78/50 92 L 12/30/23 06:12 73 22 81/44 94 L 12/30/23 05:36 73 20 78/55 93 L 12/30/23 04:59 97.9 F 77 16 78/53 12/30/23 04:10 97.6 F 79 22 79/61 99 12/30/23 03:40 97.6 F 73 22 81/52 99 12/30/23 03:25 97.5 F L 77 20 83/46 12/30/23 03:10 97.6 F 77 20 79/50 99 12/30/23 02:55 97.5 F L 71 22 82/44 12/30/23 02:31 97.5 F L 76 20 80/51 99 12/30/23 02:16 97.6 F 79 16 84/52 12/30/23 00:59 77 18 84/45 99 12/29/23 23:03 75 20 82/45 100 12/29/23 21:32 77 20 86/50 100 12/29/23 20:41 84 18 86/49 12/29/23 17:51 90 16 81/43 100 12/29/23 17:00 83 14 79/51 94 L 12/29/23 16:30 86 16 84/40 94 L 12/29/23 16:00 87 14 79/45 95 12/29/23 15:23 86 16 80/48 100 Intake and Output 12/30/23 12/30/23 12/30/23 06:59 14:59 22:59 Intake Total 280 Output Total 900 Balance -620 Intake: Blood Product 280 Rc Pheresis As-3 Unit 280 [id number] Output: Urine 900 General: Revealed a 48-year-old female quite lethargic, sleepy, weak, unable to volunteer much history. However she knew that she was at the hospital HEENT: Normocephalic. Neck is supple. Pupils reactive. Nostrils clear. Oral cavity is dry. Neck reveals no JVD, carotid bruits, or thyromegaly. CHEST EXAMINATION: Trachea is central. Symmetrical expansion. Diminished breath sound bilaterally no rhonchi no wheezes CARDIAC: Normal S1, S2 with no gallops. No murmurs ABDOMEN: Obese soft nontender no megaly no rebound no guarding Extremities: Bilateral lower extremity 2+ edema, significant areas of ecchymosis and purpura noted all over the lower extremities. Neurologically patient does not open her eyes, but she is oriented to place only, she seems to be extremely weak. Skin: Areas of ecchymosis and purpura throughout her whole skin area. Specially in the lower extremities. Psychiatric: Flat affect, depressed mood, could not fully assess mental status but she knew that she was at the hospital. Musculoskeletal: No deformities and no limitation range of motion Results - Laboratory Findings CBC and BMP: 12/30/23 07:45 12/30/23 08:11 PT/INR, D-dimer PT 13.1 sec (10.0-12.5) H 12/30/23 12:03 INR 1.2 (<1.2) H 12/30/23 12:03 Abnormal lab findings: Abnormal Labs 12/29/23 12/29/23 12/29/23 13:59 13:59 13:59 WBC RBC 1.89 L Hgb 7.3 L Hct 22.7 L MCV 120.1 H MCH 38.7 H MCHC RDW 16.8 H Plt Count 24 L Lymphocytes # 0.6 L Macrocytosis Marked A PT INR 1.2 H Sodium 136 L Chloride 114 H Carbon Dioxide 17 L BUN 55 H Creatinine 2.03 H Glucose 61 L POC Glucose (mg/dL) Plasma Lactic Acid Gold Calcium 7.1 L Phosphorus Magnesium 2.4 H AST 10 L Alkaline Phosphatase 158 H C-Reactive Protein Total Protein 4.2 L Albumin 1.7 L Procalcitonin Cortisol Urine Blood Ur Leukocyte Esterase Urine RBC Urine WBC Urine Bacteria Hyaline Casts Urine Mucus Crossmatch 12/29/23 12/29/23 12/29/23 14:36 16:38 22:50 WBC 2.9 L RBC 1.67 L Hgb 6.2 L* Hct 19.9 L* MCV 119.5 H MCH 36.9 H MCHC 30.9 L RDW 16.4 H Plt Count 23 L Lymphocytes # 0.2 L Macrocytosis Marked A PT INR Sodium Chloride Carbon Dioxide BUN Creatinine Glucose POC Glucose (mg/dL) Plasma Lactic Acid Gold Calcium Phosphorus Magnesium AST Alkaline Phosphatase C-Reactive Protein Total Protein Albumin Procalcitonin Cortisol 126.0 H Urine Blood Small H Ur Leukocyte Esterase Large H Urine RBC 8 H Urine WBC 6 H Urine Bacteria Few H Hyaline Casts 4 H Urine Mucus Rare H Crossmatch 12/29/23 12/29/23 12/29/23 23:18 23:50 23:53 WBC RBC Hgb Hct MCV MCH MCHC RDW Plt Count Lymphocytes # Macrocytosis PT INR Sodium Chloride Carbon Dioxide BUN Creatinine Glucose POC Glucose (mg/dL) 62 L 205 H Plasma Lactic Acid Gold Calcium Phosphorus Magnesium AST Alkaline Phosphatase C-Reactive Protein Total Protein Albumin Procalcitonin Cortisol Urine Blood Ur Leukocyte Esterase Urine RBC Urine WBC Urine Bacteria Hyaline Casts Urine Mucus Crossmatch See Detail 12/30/23 12/30/23 12/30/23 05:02 07:23 07:44 WBC RBC Hgb Hct MCV MCH MCHC RDW Plt Count Lymphocytes # Macrocytosis PT INR Sodium Chloride Carbon Dioxide BUN Creatinine Glucose POC Glucose (mg/dL) 66 L Plasma Lactic Acid Gold 2.2 H* Calcium Phosphorus Magnesium AST Alkaline Phosphatase C-Reactive Protein Total Protein Albumin Procalcitonin 0.25 H Cortisol Urine Blood Ur Leukocyte Esterase Urine RBC Urine WBC Urine Bacteria Hyaline Casts Urine Mucus Crossmatch 12/30/23 12/30/23 12/30/23 07:45 08:11 12:03 WBC 3.0 L RBC 2.21 L Hgb 7.1 L Hct 24.4 L MCV 110.4 H D MCH MCHC 29.1 L RDW 22.1 H Plt Count 15 L* Lymphocytes # 0.4 L Macrocytosis Marked A PT 13.1 H INR 1.2 H Sodium Chloride 118 H Carbon Dioxide 13 L BUN 48 H Creatinine 1.58 H Glucose 137 H POC Glucose (mg/dL) Plasma Lactic Acid Gold Calcium 7.0 L Phosphorus 4.6 H Magnesium AST Alkaline Phosphatase C-Reactive Protein 5.4 H Total Protein 4.3 L Albumin 1.9 L Procalcitonin Cortisol Urine Blood Ur Leukocyte Esterase Urine RBC Urine WBC Urine Bacteria Hyaline Casts Urine Mucus Crossmatch 12/30/23 12:03 WBC RBC Hgb Hct MCV MCH MCHC RDW Plt Count Lymphocytes # Macrocytosis PT INR Sodium Chloride Carbon Dioxide BUN Creatinine Glucose POC Glucose (mg/dL) Plasma Lactic Acid Gold 0.6 L Calcium Phosphorus Magnesium AST Alkaline Phosphatase C-Reactive Protein Total Protein Albumin Procalcitonin Cortisol Urine Blood Ur Leukocyte Esterase Urine RBC Urine WBC Urine Bacteria Hyaline Casts Urine Mucus Crossmatch - Diagnostic Findings Chest x-ray: image reviewed (Mild pulmonary edema changes with trace of left pleural effusion) Assessment and Plan Assessment: Impression: Altered mental status secondary to acute metabolic encephalopathy Acute kidney injury most likely secondary to low blood pressures/hypotension/acute tubular necrosis Chronic right lower extremity cellulitis, has been recently treated at [facility] Severe thrombocytopenia secondary to liver disease Chronic pancytopenia History of adrenal insufficiency requiring Solu-Cortef and she is maintained on Cortef on outpatient basis Hypothyroidism History of liver cirrhosis Hypoalbuminemia Acute none anion gap metabolic acidosis Possible sepsis and septic shock although I believe the presentation is mostly a presentation of acute adrenal insufficiency Recommendation: Cautious hydration Restart Solu-Cortef at 100 mg IV push every 8 hours/stress doses of Solu-Cortef Check blood cultures, antibiotics to be given empirically Neurology to see on consultation Gastroenterology to see on consultation Hematology to see on consultation Consider CT of the brain without contrast Hold narcotics and sedatives for the time being Restart patient on midodrine Discussed her condition with her at bedside while in the ER Will change admission from admission to medical floor to admission to ICU Patient is critically ill Will continue to follow Time with Patient: Greater than 30
--- NOTE | 2023-12-30 19:24 | CT ---
EXAMINATION TYPE: CT brain wo con DATE OF EXAM: 12/30/2023 COMPARISON: None HISTORY: AMS CT DLP: 1139.4 mGycm. Automated Exposure Control for Dose Reduction was Utilized. TECHNIQUE: CT scan of the head is performed without contrast. FINDINGS: There is no acute intracranial hemorrhage, mass effect, or midline shift identified. The ventricles and sulci are within normal limits in size. The globes are intact and the visualized sin uses are clear. IMPRESSION: No acute intracranial hemorrhage, mass effect, or midline shift is seen.
--- NOTE | 2023-12-30 19:30 | CT ---
EXAMINATION TYPE: CT abdomen pelvis wo con DATE OF EXAM: 12/30/2023 COMPARISON: CTA of the abdomen and pelvis dated 11/23/2022 HISTORY: hx of ascites and cirrhosis, poor kidney function CT DLP: 817.6 mGycm Automated exposure control for dose reduction was used. TECHNIQUE: Helical acquisition of images was performed from the lung bases through the pelvis. FINDINGS: There are large consolidative infiltrates in the lung base. There are surgical absence of gallbladder. There is a large degree of ascites. There is no organomegaly involving the liver, pancreas or spleen There are extensive postsurgical changes involving the upper abdomen which are stable. There is edema in the mesenteric root. There is no renal calcification or hydronephrosis. Caliber of the abdominal aorta is normal. The bowel loops are normal in caliber and there is no dilatation or obstruction. There is marked anasarca. IMPRESSION: 1. Large consolidative/airspace opacities in the lung bases. 2. Marked ascites. 3. Marked anasarca. 4. Postsurgical changes involving the stomach and bowel identified previously.
[2023-12-30] MEDS ORDERED: VANCOMYCIN IV PER PHARMACY 1 EACH MISC MISCELLANE PRN (21:08)
[2023-12-30] MEDS: HYDROCORTISONE SUCCINATE 100 MG/2 ML VIAL IV SCH (21:09)
[2023-12-30] MEDS: PIPERACILLIN-TAZOBACTAM 3.375 GM in SODIUM CHLORIDE 0.9% 100 ML IVPB SCH (21:17)
[2023-12-30] MEDS: VANCOMYCIN 1,250 MG in SODIUM CHLORIDE 0.9% 250 ML IVPB SCH (21:39)
--- NOTE | 2023-12-30 22:52 | P.CONS ---
History of Present Illness - Reason for Consult Consult date: 12/30/23 - History of Present Illness Patient is a 48-year-old female with a past medical history significant for reflux osteomyelitis cirrhosis of the liver and adrenal insufficiency has been brought into the hospital for evaluation of mental status changes generalized weakness and this patient symptom has been getting worse for the last 4 days before the patient was sent to the ER apparently patient was recently admitted locally facility and has been treated for lower extremity cellulitis as well as ascites patient on presentation to the hospital was afebrile and no fever have been recorded subsequently patient was mildly tachycardic on admission but also hypotensive and currently requiring 2 L nasal cannula oxygen patient did have a white count of 3.0 BUN and creatinine has been mildly elevated liver enzymes are normal CRP is 5.4 urine has been positive patient did have a chest x-ray trace left effusion and chronic changes of the lung patient was initially started on cefazolin antibiotic and to be switched over to vancomycin and Zosyn by pulmonary infectious disease was consulted for further management of antibiotic therapy patient is currently lethargic and elevated good historian she did have a wound to the left lower extremity that has been there for couple of weeks and did have diffuse swelling to the leg no significant redness or any foul-smelling drainage Past Medical History Past Medical History: GERD/Reflux, Osteoarthritis (OA), Thyroid Disorder Additional Past Medical History / Comment(s): enlarged liver and spleen,hx. iron deficiency anemia, recent change in bowel movements , abdominal pain, nausea, blood clots post covid History of Any Multi-Drug Resistant Organisms: CRE, Other MDRO Year Discovered:: 10/14/23 MDRO Carbapenem NOT Detected per [facility] MDRO Source:: Urine Past Surgical History: Bariatric Surgery, Section, Cholecystectomy, Tubal Ligation Additional Past Surgical History / Comment(s): Bariatric revision duodenum switch 2015,2000 Aneesh-en-Y gastric bypass, 3 c-sections. PANECTOMY. Past Anesthesia/Blood Transfusion Reactions: Family Hisory of Malignant Hyperthermia Additional Past Anesthesia/Blood Transfusion Reaction / Comm: 1rst cousin hx malignant hyperthermia as child.Pt has had anesthesia in past without problems Past Psychological History: Depression Smoking Status: Never smoker - Past Family History Mother Family Medical History: No Reported History Medications and Allergies Home Medications Medication Instructions Recorded Confirmed Type Vortioxetine Hydrobromide 20 mg PO DAILY@0900 02/17/12/28/24 History [Trintellix] Calcium Carbonate [Tums] 1,000 mg PO TID PRN 12/29/23 12/29/23 History Cyclobenzaprine [Flexeril] 10 mg PO TID PRN 12/29/23 12/29/23 History Furosemide [Lasix] 20 mg PO DAILY@1300 12/29/23 12/29/23 History Furosemide [Lasix] 40 mg PO DAILY@59912/29/23 12/29/23 History Gabapentin [Neurontin] 300 mg PO HS@2100 12/29/23 12/29/23 History HYDROcodone/APAP 5-325MG [[place] 1 tab PO Q6H PRN 12/29/23 12/29/23 History 5-325] Hydrocortisone [Cortef] 20 mg PO DAILY@89912/29/23 12/29/23 History Lactose-Reduced Food [Ensure Plus] 1 can PO DAILY@0912/29/23 12/29/23 History Levothyroxine Sodium [Synthroid] 200 mcg PO DAILY@59912/29/23 12/29/23 History Miconazole Nitrate Powder 2% 1 applic TOPICAL Q12H 12/29/23 12/29/23 History Midodrine HCl [ProAmatine] 10 mg PO TID-W/MEALS@08,12,17 12/29/23 12/29/23 History Nystatin 100,000 Unit/gm Powd 1 applic TOPICAL BID 12/29/23 12/29/23 History [Mycostatin Powder] Ondansetron [Zofran] 4 mg PO Q6H PRN 12/29/23 12/29/23 History Potassium Chloride ER [K-Dur 20] 20 meq PO DAILY@59912/29/23 12/29/23 History Spironolactone [Aldactone] 12.5 mg PO DAILY@0912/29/23 12/29/23 History Therahoney External Gel 1 applic TOPICAL DAILY PRN 12/29/23 12/29/23 History Therahoney External Gel 1 applic TOPICAL DAILY PRN 12/29/23 12/29/23 History Therahoney External Gel 1 applic TOPICAL HS 12/29/23 12/29/23 History Therahoney External Gel 1 applic TOPICAL HS 12/29/23 12/29/23 History Z-Guard 1 applic TOPICAL BID 12/29/23 12/29/23 History Z-Guard 1 applic TOPICAL DAILY PRN 12/29/23 12/29/23 History Allergies Allergy/AdvReac Type Severity Reaction Status Date / Time No Known Allergies Allergy Verified 12/29/23 14:04 Physical Exam Vitals: Vital Signs Temp Pulse Resp BP Pulse Ox 12/30/23 09:06 66 16 70/47 12/30/23 08:16 68 18 78/50 98 12/30/23 07:49 69 18 12/30/23 07:20 73 16 77/49 100 12/30/23 06:59 68 22 78/50 92 L 12/30/23 06:12 73 22 81/44 94 L 12/30/23 05:36 73 20 78/55 93 L 12/30/23 04:59 97.9 F 77 16 78/53 12/30/23 04:10 97.6 F 79 22 79/61 99 12/30/23 03:40 97.6 F 73 22 81/52 99 12/30/23 03:25 97.5 F L 77 20 83/46 12/30/23 03:10 97.6 F 77 20 79/50 99 12/30/23 02:55 97.5 F L 71 22 82/44 12/30/23 02:31 97.5 F L 76 20 80/51 99 12/30/23 02:16 97.6 F 79 16 84/52 12/30/23 00:59 77 18 84/45 99 12/29/23 23:03 75 20 82/45 100 12/29/23 21:32 77 20 86/50 100 12/29/23 20:41 84 18 86/49 12/29/23 17:51 90 16 81/43 100 12/29/23 17:00 83 14 79/51 94 L 12/29/23 16:30 86 16 84/40 94 L 12/29/23 16:00 87 14 79/45 95 12/29/23 15:23 86 16 80/48 100 12/29/23 14:51 89 16 76/43 97 12/29/23 14:49 97 12/29/23 14:30 97.6 F 93 12 75/46 85 L 12/29/23 14:00 99 13 80/46 12/29/23 13:30 98 11 L 73/45 12/29/23 13:28 101 H 23 12/29/23 12:33 97.9 F 99 16 74/44 93 L Intake and Output 12/29/23 12/30/23 12/30/23 22:59 06:59 14:59 Intake Total 280 Output Total 900 Balance -620 Intake: Blood Product 280 Rc Pheresis As-3 Unit 280 [id number] Output: Urine 900 Results CBC & Chem 7: 12/30/23 07:45 12/30/23 08:11 Labs: Abnormal Lab Results - Last 24 Hours (Table) 12/29/23 12/29/23 12/29/23 Range/Units 13:59 13:59 13:59 WBC (3.8-10.6) k/uL RBC 1.89 L (3.80-5.40) m/uL Hgb 7.3 L (11.4-16.0) gm/dL Hct 22.7 L (34.0-46.0) % MCV 120.1 H (80.0-100.0) fL MCH 38.7 H (25.0-35.0) pg MCHC (31.0-37.0) g/dL RDW 16.8 H (11.5-15.5) % Plt Count 24 L (150-450) k/uL Lymphocytes # 0.6 L (1.0-4.8) k/uL Macrocytosis Marked A INR 1.2 H (<1.2) Sodium 136 L (137-145) mmol/L Chloride 114 H (98-107) mmol/L Carbon Dioxide 17 L (22-30) mmol/L BUN 55 H (7-17) mg/dL Creatinine 2.03 H (0.52-1.04) mg/dL Glucose 61 L (74-99) mg/dL POC Glucose (mg/dL) (70-110) mg/dL Plasma Lactic Acid Gold (0.7-2.0) mmol/L Calcium 7.1 L (8.4-10.2) mg/dL Phosphorus (2.5-4.5) mg/dL Magnesium 2.4 H (1.6-2.3) mg/dL AST 10 L (14-36) U/L Alkaline Phosphatase 158 H (38-126) U/L C-Reactive Protein (<1.0) mg/dL Total Protein 4.2 L (6.3-8.2) g/dL Albumin 1.7 L (3.5-5.0) g/dL Procalcitonin (0.02-0.09) ng/mL Cortisol (3.1-22.4) UG/DL Urine Blood (Negative) Ur Leukocyte Esterase (Negative) Urine RBC (0-5) /hpf Urine WBC (0-5) /hpf Urine Bacteria (None) /hpf Hyaline Casts (0-2) /lpf Urine Mucus (None) /hpf Crossmatch 12/29/23 12/29/23 12/29/23 Range/Units 14:36 16:38 22:50 WBC 2.9 L (3.8-10.6) k/uL RBC 1.67 L (3.80-5.40) m/uL Hgb 6.2 L* (11.4-16.0) gm/dL Hct 19.9 L* (34.0-46.0) % MCV 119.5 H (80.0-100.0) fL MCH 36.9 H (25.0-35.0) pg MCHC 30.9 L (31.0-37.0) g/dL RDW 16.4 H (11.5-15.5) % Plt Count 23 L (150-450) k/uL Lymphocytes # 0.2 L (1.0-4.8) k/uL Macrocytosis Marked A INR (<1.2) Sodium (137-145) mmol/L Chloride (98-107) mmol/L Carbon Dioxide (22-30) mmol/L BUN (7-17) mg/dL Creatinine (0.52-1.04) mg/dL Glucose (74-99) mg/dL POC Glucose (mg/dL) (70-110) mg/dL Plasma Lactic Acid Gold (0.7-2.0) mmol/L Calcium (8.4-10.2) mg/dL Phosphorus (2.5-4.5) mg/dL Magnesium (1.6-2.3) mg/dL AST (14-36) U/L Alkaline Phosphatase (38-126) U/L C-Reactive Protein (<1.0) mg/dL Total Protein (6.3-8.2) g/dL Albumin (3.5-5.0) g/dL Procalcitonin (0.02-0.09) ng/mL Cortisol 126.0 H (3.1-22.4) UG/DL Urine Blood Small H (Negative) Ur Leukocyte Esterase Large H (Negative) Urine RBC 8 H (0-5) /hpf Urine WBC 6 H (0-5) /hpf Urine Bacteria Few H (None) /hpf Hyaline Casts 4 H (0-2) /lpf Urine Mucus Rare H (None) /hpf Crossmatch 12/29/23 12/29/23 12/29/23 Range/Units 23:18 23:50 23:53 WBC (3.8-10.6) k/uL RBC (3.80-5.40) m/uL Hgb (11.4-16.0) gm/dL Hct (34.0-46.0) % MCV (80.0-100.0) fL MCH (25.0-35.0) pg MCHC (31.0-37.0) g/dL RDW (11.5-15.5) % Plt Count (150-450) k/uL Lymphocytes # (1.0-4.8) k/uL Macrocytosis INR (<1.2) Sodium (137-145) mmol/L Chloride (98-107) mmol/L Carbon Dioxide (22-30) mmol/L BUN (7-17) mg/dL Creatinine (0.52-1.04) mg/dL Glucose (74-99) mg/dL POC Glucose (mg/dL) 62 L 205 H (70-110) mg/dL Plasma Lactic Acid Gold (0.7-2.0) mmol/L Calcium (8.4-10.2) mg/dL Phosphorus (2.5-4.5) mg/dL Magnesium (1.6-2.3) mg/dL AST (14-36) U/L Alkaline Phosphatase (38-126) U/L C-Reactive Protein (<1.0) mg/dL Total Protein (6.3-8.2) g/dL Albumin (3.5-5.0) g/dL Procalcitonin (0.02-0.09) ng/mL Cortisol (3.1-22.4) UG/DL Urine Blood (Negative) Ur Leukocyte Esterase (Negative) Urine RBC (0-5) /hpf Urine WBC (0-5) /hpf Urine Bacteria (None) /hpf Hyaline Casts (0-2) /lpf Urine Mucus (None) /hpf Crossmatch See Detail 12/30/23 12/30/23 12/30/23 Range/Units 05:02 07:23 07:44 WBC (3.8-10.6) k/uL RBC (3.80-5.40) m/uL Hgb (11.4-16.0) gm/dL Hct (34.0-46.0) % MCV (80.0-100.0) fL MCH (25.0-35.0) pg MCHC (31.0-37.0) g/dL RDW (11.5-15.5) % Plt Count (150-450) k/uL Lymphocytes # (1.0-4.8) k/uL Macrocytosis INR (<1.2) Sodium (137-145) mmol/L Chloride (98-107) mmol/L Carbon Dioxide (22-30) mmol/L BUN (7-17) mg/dL Creatinine (0.52-1.04) mg/dL Glucose (74-99) mg/dL POC Glucose (mg/dL) 66 L (70-110) mg/dL Plasma Lactic Acid Gold 2.2 H* (0.7-2.0) mmol/L Calcium (8.4-10.2) mg/dL Phosphorus (2.5-4.5) mg/dL Magnesium (1.6-2.3) mg/dL AST (14-36) U/L Alkaline Phosphatase (38-126) U/L C-Reactive Protein (<1.0) mg/dL Total Protein (6.3-8.2) g/dL Albumin (3.5-5.0) g/dL Procalcitonin 0.25 H (0.02-0.09) ng/mL Cortisol (3.1-22.4) UG/DL Urine Blood (Negative) Ur Leukocyte Esterase (Negative) Urine RBC (0-5) /hpf Urine WBC (0-5) /hpf Urine Bacteria (None) /hpf Hyaline Casts (0-2) /lpf Urine Mucus (None) /hpf Crossmatch 12/30/23 12/30/23 Range/Units 07:45 08:11 WBC 3.0 L (3.8-10.6) k/uL RBC 2.21 L (3.80-5.40) m/uL Hgb 7.1 L (11.4-16.0) gm/dL Hct 24.4 L (34.0-46.0) % MCV 110.4 H D (80.0-100.0) fL MCH (25.0-35.0) pg MCHC 29.1 L (31.0-37.0) g/dL RDW 22.1 H (11.5-15.5) % Plt Count 15 L* (150-450) k/uL Lymphocytes # (1.0-4.8) k/uL Macrocytosis Marked A INR (<1.2) Sodium (137-145) mmol/L Chloride 118 H (98-107) mmol/L Carbon Dioxide 13 L (22-30) mmol/L BUN 48 H (7-17) mg/dL Creatinine 1.58 H (0.52-1.04) mg/dL Glucose 137 H (74-99) mg/dL POC Glucose (mg/dL) (70-110) mg/dL Plasma Lactic Acid Gold (0.7-2.0) mmol/L Calcium 7.0 L (8.4-10.2) mg/dL Phosphorus 4.6 H (2.5-4.5) mg/dL Magnesium (1.6-2.3) mg/dL AST (14-36) U/L Alkaline Phosphatase (38-126) U/L C-Reactive Protein 5.4 H (<1.0) mg/dL Total Protein 4.3 L (6.3-8.2) g/dL Albumin 1.9 L (3.5-5.0) g/dL Procalcitonin (0.02-0.09) ng/mL Cortisol (3.1-22.4) UG/DL Urine Blood (Negative) Ur Leukocyte Esterase (Negative) Urine RBC (0-5) /hpf Urine WBC (0-5) /hpf Urine Bacteria (None) /hpf Hyaline Casts (0-2) /lpf Urine Mucus (None) /hpf Crossmatch Assessment and Plan Plan: 1patient presented hospital with sepsis in this patient who did have hypot ension tachycardia leukopenia concerning for possible pneumonia versus SBP she also have a wound to the left lower extremity however no significant redness wound/cellulitis less likely but not entirely excluded 2-patient did have a previous emergency high risk of nephrotoxicity specially from vancomycin and Zosyn combination 3-we will continue the patient on Zosyn however switch vancomycin to daptomycin 4-check inflammatory markers We will follow on clinical condition and cultures to further adjust medication if needed Thank you for this consultation we will follow the patient along with you Dictation was produced using [employer] dictation software. please excuse any grammatical, word or spelling errors. Time with Patient: Greater than 30
--- NOTE | 2023-12-30 22:53 | P.CONS ---
History of Present Illness - Reason for Consult Consult date: 12/30/23 thrombocytopenia Requesting physician: Jef Don - Chief Complaint weakness - History of Present Illness Patient is a 48 year old female with a significant history of iron deficiency anemia from heavy menstrual periods and lack of oral iron absorption from previous gastric bypass surgery, chronic thrombocytopenia secondary to liver cirrhosis, adrenal insufficiency maintained normally on Cortef, and hypothyroidism. She is a patient of Dr. Saunders. She has been previously treated with parenteral iron and PO Vit B12. CT scan of abdomen on 01/27/2018 revealed evidence of hepatosplenomegaly. Bone marrow biopsy on 02/20/2018 was normal,normal cytogenetics and FISH for MDS. She was admitted to [facility] in December/2021 with pneumonia and PE after COVID infection,CT chest showed bilateral large consolidation in both lungs and a PE and was anticoagulated with Eliquis. CT abdomen pelvis obtained on 11/23/2022 was negative for portal vein thrombosis. Increasing anasarca of lower anterior abdomen abdominal wall and pelvis. And persistent mild splenomegaly with mild hepatomegaly. Subsequent MRCP on 12/01/2022 was unremarkable. She was last seen in clinic on 08/02/2023 and was experiencing weakness, and retaining fluid in abdomen and legs. It was discussed with the patient and her that she was showing signs of possible underlying liver cirrhosis, and GI evaluation was recommended and referral was sent to Dr. Segura. Her pancytopenia was thought to likely be related to portal hypertension. Patient presented to [facility] ER from longterm with complaints of altered mental status and generalized weakness worsening over the 4 days prior to admisson. Upon arrival she was found to have profound hypotension and was given multiple fluid boluses and received 100 mg of Solu-Cortef. Of note patient was recently at [facility], and she was treated for cellulitis. Patient was evaluated in ER today, and HPI is limited due to patients acute condition, alba nolence; she is arousable to tactile stimuli but is not answering questions appropriately, and there is no family at beside. On admission chest x-ray revealed trace left pleural effusion and chronic changes of the lungs. BNP 4990. UA showing possible UTI. Blood cultures pending. Cellulitis LLE noted, ID consulted. Patient is afebrile. IV antibiotics started. CBC reviewed, WBC 2.9, hemoglobin 6.2, MCV 119.5, platelets 23,000. S/p 1 unit PRBCs. CBC today pending. Creatinine 2.03, GFR 29. PT 12.3, INR 1.2, PTT 20.6. Bilirubin normal at 0.8. AST 10, ALT 7, ALP 158. Cortisol elevated at 126, TSH 0.896. Typically hemoglobin is in the 8 range, and platelets typically in the 200,000 range. Anemia labs last checked in clinic July 2023 revealed Vit B12 1483, iron saturation 20%. Ferritin 133. Review of Systems 10 point ROS is negative except as stated in the HPI Past Medical History Past Medical History: GERD/Reflux, Osteoarthritis (OA), Thyroid Disorder Additional Past Medical History / Comment(s): enlarged liver and spleen,hx. iron deficiency anemia, recent change in bowel movements , abdominal pain, nausea, blood clots post covid History of Any Multi-Drug Resistant Organisms: CRE, Other MDRO Year Discovered:: 10/14/23 MDRO Carbapenem NOT Detected per [facility] MDRO Source:: Urine Past Surgical History: Bariatric Surgery, Section, Cholecystectomy, Tubal Ligation Additional Past Surgical History / Comment(s): Bariatric revision duodenum switch 2015,2000 Aneesh-en-Y gastric bypass, 3 c-sections. PANECTOMY. Past Anesthesia/Blood Transfusion Reactions: Family Hisory of Malignant Hyperthermia Additional Past Anesthesia/Blood Transfusion Reaction / Comm: 1rst cousin hx malignant hyperthermia as child.Pt has had anesthesia in past without problems Past Psychological History: Depression Smoking Status: Never smoker - Past Family History Mother Family Medical History: No Reported History Medications and Allergies Home Medications Medication Instructions Recorded Confirmed Type Vortioxetine Hydrobromide 20 mg PO DAILY@89902/17/18 12/29/23 History [Trintellix] Calcium Carbonate [Tums] 1,000 mg PO TID PRN 12/29/23 12/29/23 History Cyclobenzaprine [Flexeril] 10 mg PO TID PRN 12/29/23 12/29/23 History Furosemide [Lasix] 20 mg PO DAILY@1300 12/29/23 12/29/23 History Furosemide [Lasix] 40 mg PO DAILY@0600 12/29/23 12/29/23 History Gabapentin [Neurontin] 300 mg PO HS@2100 12/29/23 12/29/23 History HYDROcodone/APAP 5-325MG [Rayle 1 tab PO Q6H PRN 12/29/23 12/29/23 History 5-325] Hydrocortisone [Cortef] 20 mg PO DAILY@0912/29/23 12/29/23 History Lactose-Reduced Food [Ensure Plus] 1 can PO DAILY@0900 12/29/23 12/29/23 History Levothyroxine Sodium [Synthroid] 200 mcg PO DAILY@0600 12/29/23 12/29/23 History Miconazole Nitrate Powder 2% 1 applic TOPICAL Q12H 12/29/23 12/29/23 History Midodrine HCl [ProAmatine] 10 mg PO TID-W/MEALS@08,12,17 12/29/23 12/29/23 History Nystatin 100,000 Unit/gm Powd 1 applic TOPICAL BID 12/29/23 12/29/23 History [Mycostatin Powder] Ondansetron [Zofran] 4 mg PO Q6H PRN 12/29/23 12/29/23 History Potassium Chloride ER [K-Dur 20] 20 meq PO DAILY@0600 12/29/23 12/29/23 History Spironolactone [Aldactone] 12.5 mg PO DAILY@0900 12/29/23 12/29/23 History Therahoney External Gel 1 applic TOPICAL DAILY PRN 12/29/23 12/29/23 History Therahoney External Gel 1 applic TOPICAL DAILY PRN 12/29/23 12/29/23 History Therahoney External Gel 1 applic TOPICAL HS 12/29/23 12/29/23 History Therahoney External Gel 1 applic TOPICAL HS 12/29/23 12/29/23 History Z-Guard 1 applic TOPICAL BID 12/29/23 12/29/23 History Z-Guard 1 applic TOPICAL DAILY PRN 12/29/23 12/29/23 History Allergies Allergy/AdvReac Type Severity Reaction Status Date / Time No Known Allergies Allergy Verified 12/29/23 14:04 Physical Exam Vitals: Vital Signs Temp Pulse Resp BP Pulse Ox 12/30/23 12:00 70 18 79/51 96 12/30/23 11:00 69 12 76/56 100 12/30/23 09:06 66 16 70/47 12/30/23 08:16 68 18 78/50 98 12/30/23 07:49 69 18 12/30/23 07:20 73 16 77/49 100 12/30/23 06:59 68 22 78/50 92 L 12/30/23 06:12 73 22 81/44 94 L 12/30/23 05:36 73 20 78/55 93 L 12/30/23 04:59 97.9 F 77 16 78/53 12/30/23 04:10 97.6 F 79 22 79/61 99 12/30/23 03:40 97.6 F 73 22 81/52 99 12/30/23 03:25 97.5 F L 77 20 83/46 12/30/23 03:10 97.6 F 77 20 79/50 99 12/30/23 02:55 97.5 F L 71 22 82/44 12/30/23 02:31 97.5 F L 76 20 80/51 99 12/30/23 02:16 97.6 F 79 16 84/52 12/30/23 00:59 77 18 84/45 99 12/29/23 23:03 75 20 82/45 100 12/29/23 21:32 77 20 86/50 100 12/29/23 20:41 84 18 86/49 12/29/23 17:51 90 16 81/43 100 12/29/23 17:00 83 14 79/51 94 L 12/29/23 16:30 86 16 84/40 94 L 12/29/23 16:00 87 14 79/45 95 12/29/23 15:23 86 16 80/48 100 12/29/23 14:51 89 16 76/43 97 12/29/23 14:49 97 12/29/23 14:30 97.6 F 93 12 75/46 85 L 12/29/23 14:00 99 13 80/46 12/29/23 13:30 98 11 L 73/45 12/29/23 13:28 101 H 23 Intake and Output 12/29/23 12/30/23 12/30/23 22:59 06:59 14:59 Intake Total 280 Output Total 900 Balance -620 Intake: Blood Product 280 Rc Pheresis As-3 Unit 280 [id number] Output: Urine 900 - Constitutional General appearance: average body habitus, no acute distress - Respiratory Respiratory: bilateral: diminished - Cardiovascular Rhythm: regular Heart sounds: normal: S1, S2 - Gastrointestinal General gastrointestinal: soft, no tenderness - Integumentary Integumentary: no cyanotic, pale - Neurologic somnolent, confused - Musculoskeletal Musculoskeletal: generalized weakness Results CBC & Chem 7: 12/30/23 07:45 12/30/23 08:11 Labs: Abnormal Lab Results - Last 24 Hours (Table) 12/29/23 12/29/23 12/29/23 Range/Units 13:59 13:59 13:59 WBC (3.8-10.6) k/uL RBC 1.89 L (3.80-5.40) m/uL Hgb 7.3 L (11.4-16.0) gm/dL Hct 22.7 L (34.0-46.0) % MCV 120.1 H (80.0-100.0) fL MCH 38.7 H (25.0-35.0) pg MCHC (31.0-37.0) g/dL RDW 16.8 H (11.5-15.5) % Plt Count 24 L (150-450) k/uL Lymphocytes # 0.6 L (1.0-4.8) k/uL Macrocytosis Marked A PT (10.0-12.5) sec INR 1.2 H (<1.2) Sodium 136 L (137-145) mmol/L Chloride 114 H (98-107) mmol/L Carbon Dioxide 17 L (22-30) mmol/L BUN 55 H (7-17) mg/dL Creatinine 2.03 H (0.52-1.04) mg/dL Glucose 61 L (74-99) mg/dL POC Glucose (mg/dL) (70-110) mg/dL Plasma Lactic Acid Gold (0.7-2.0) mmol/L Calcium 7.1 L (8.4-10.2) mg/dL Phosphorus (2.5-4.5) mg/dL Magnesium 2.4 H (1.6-2.3) mg/dL AST 10 L (14-36) U/L Alkaline Phosphatase 158 H (38-126) U/L C-Reactive Protein (<1.0) mg/dL Total Protein 4.2 L (6.3-8.2) g/dL Albumin 1.7 L (3.5-5.0) g/dL Procalcitonin (0.02-0.09) ng/mL Cortisol (3.1-22.4) UG/DL Urine Blood (Negative) Ur Leukocyte Esterase (Negative) Urine RBC (0-5) /hpf Urine WBC (0-5) /hpf Urine Bacteria (None) /hpf Hyaline Casts (0-2) /lpf Urine Mucus (None) /hpf Crossmatch 12/29/23 12/29/23 12/29/23 Range/Units 14:36 16:38 22:50 WBC 2.9 L (3.8-10.6) k/uL RBC 1.67 L (3.80-5.40) m/uL Hgb 6.2 L* (11.4-16.0) gm/dL Hct 19.9 L* (34.0-46.0) % MCV 119.5 H (80.0-100.0) fL MCH 36.9 H (25.0-35.0) pg MCHC 30.9 L (31.0-37.0) g/dL RDW 16.4 H (11.5-15.5) % Plt Count 23 L (150-450) k/uL Lymphocytes # 0.2 L (1.0-4.8) k/uL Macrocytosis Marked A PT (10.0-12.5) sec INR (<1.2) Sodium (137-145) mmol/L Chloride (98-107) mmol/L Carbon Dioxide (22-30) mmol/L BUN (7-17) mg/dL Creatinine (0.52-1.04) mg/dL Glucose (74-99) mg/dL POC Glucose (mg/dL) (70-110) mg/dL Plasma Lactic Acid Gold (0.7-2.0) mmol/L Calcium (8.4-10.2) mg/dL Phosphorus (2.5-4.5) mg/dL Magnesium (1.6-2.3) mg/dL AST (14-36) U/L Alkaline Phosphatase (38-126) U/L C-Reactive Protein (<1.0) mg/dL Total Protein (6.3-8.2) g/dL Albumin (3.5-5.0) g/dL Procalcitonin (0.02-0.09) ng/mL Cortisol 126.0 H (3.1-22.4) UG/DL Urine Blood Small H (Negative) Ur Leukocyte Esterase Large H (Negative) Urine RBC 8 H (0-5) /hpf Urine WBC 6 H (0-5) /hpf Urine Bacteria Few H (None) /hpf Hyaline Casts 4 H (0-2) /lpf Urine Mucus Rare H (None) /hpf Crossmatch 12/29/23 12/29/23 12/29/23 Range/Units 23:18 23:50 23:53 WBC (3.8-10.6) k/uL RBC (3.80-5.40) m/uL Hgb (11.4-16.0) gm/dL Hct (34.0-46.0) % MCV (80.0-100.0) fL MCH (25.0-35.0) pg MCHC (31.0-37.0) g/dL RDW (11.5-15.5) % Plt Count (150-450) k/uL Lymphocytes # (1.0-4.8) k/uL Macrocytosis PT (10.0-12.5) sec INR (<1.2) Sodium (137-145) mmol/L Chloride (98-107) mmol/L Carbon Dioxide (22-30) mmol/L BUN (7-17) mg/dL Creatinine (0.52-1.04) mg/dL Glucose (74-99) mg/dL POC Glucose (mg/dL) 62 L 205 H (70-110) mg/dL Plasma Lactic Acid Gold (0.7-2.0) mmol/L Calcium (8.4-10.2) mg/dL Phosphorus (2.5-4.5) mg/dL Magnesium (1.6-2.3) mg/dL AST (14-36) U/L Alkaline Phosphatase (38-126) U/L C-Reactive Protein (<1.0) mg/dL Total Protein (6.3-8.2) g/dL Albumin (3.5-5.0) g/dL Procalcitonin (0.02-0.09) ng/mL Cortisol (3.1-22.4) UG/DL Urine Blood (Negative) Ur Leukocyte Esterase (Negative) Urine RBC (0-5) /hpf Urine WBC (0-5) /hpf Urine Bacteria (None) /hpf Hyaline Casts (0-2) /lpf Urine Mucus (None) /hpf Crossmatch See Detail 12/30/23 12/30/23 12/30/23 Range/Units 05:02 07:23 07:44 WBC (3.8-10.6) k/uL RBC (3.80-5.40) m/uL Hgb (11.4-16.0) gm/dL Hct (34.0-46.0) % MCV (80.0-100.0) fL MCH (25.0-35.0) pg MCHC (31.0-37.0) g/dL RDW (11.5-15.5) % Plt Count (150-450) k/uL Lymphocytes # (1.0-4.8) k/uL Macrocytosis PT (10.0-12.5) sec INR (<1.2) Sodium (137-145) mmol/L Chloride (98-107) mmol/L Carbon Dioxide (22-30) mmol/L BUN (7-17) mg/dL Creatinine (0.52-1.04) mg/dL Glucose (74-99) mg/dL POC Glucose (mg/dL) 66 L (70-110) mg/dL Plasma Lactic Acid Gold 2.2 H* (0.7-2.0) mmol/L Calcium (8.4-10.2) mg/dL Phosphorus (2.5-4.5) mg/dL Magnesium (1.6-2.3) mg/dL AST (14-36) U/L Alkaline Phosphatase (38-126) U/L C-Reactive Protein (<1.0) mg/dL Total Protein (6.3-8.2) g/dL Albumin (3.5-5.0) g/dL Procalcitonin 0.25 H (0.02-0.09) ng/mL Cortisol (3.1-22.4) UG/DL Urine Blood (Negative) Ur Leukocyte Esterase (Negative) Urine RBC (0-5) /hpf Urine WBC (0-5) /hpf Urine Bacteria (None) /hpf Hyaline Casts (0-2) /lpf Urine Mucus (None) /hpf Crossmatch 12/30/23 12/30/23 12/30/23 Range/Units 07:45 08:11 12:03 WBC 3.0 L (3.8-10.6) k/uL RBC 2.21 L (3.80-5.40) m/uL Hgb 7.1 L (11.4-16.0) gm/dL Hct 24.4 L (34.0-46.0) % MCV 110.4 H D (80.0-100.0) fL MCH (25.0-35.0) pg MCHC 29.1 L (31.0-37.0) g/dL RDW 22.1 H (11.5-15.5) % Plt Count 15 L* (150-450) k/uL Lymphocytes # 0.4 L (1.0-4.8) k/uL Macrocytosis Marked A PT 13.1 H (10.0-12.5) sec INR 1.2 H (<1.2) Sodium (137-145) mmol/L Chloride 118 H (98-107) mmol/L Carbon Dioxide 13 L (22-30) mmol/L BUN 48 H (7-17) mg/dL Creatinine 1.58 H (0.52-1.04) mg/dL Glucose 137 H (74-99) mg/dL POC Glucose (mg/dL) (70-110) mg/dL Plasma Lactic Acid Gold (0.7-2.0) mmol/L Calcium 7.0 L (8.4-10.2) mg/dL Phosphorus 4.6 H (2.5-4.5) mg/dL Magnesium (1.6-2.3) mg/dL AST (14-36) U/L Alkaline Phosphatase (38-126) U/L C-Reactive Protein 5.4 H (<1.0) mg/dL Total Protein 4.3 L (6.3-8.2) g/dL Albumin 1.9 L (3.5-5.0) g/dL Procalcitonin (0.02-0.09) ng/mL Cortisol (3.1-22.4) UG/DL Urine Blood (Negative) Ur Leukocyte Esterase (Negative) Urine RBC (0-5) /hpf Urine WBC (0-5) /hpf Urine Bacteria (None) /hpf Hyaline Casts (0-2) /lpf Urine Mucus (None) /hpf Crossmatch 12/30/23 Range/Units 12:03 WBC (3.8-10.6) k/uL RBC (3.80-5.40) m/uL Hgb (11.4-16.0) gm/dL Hct (34.0-46.0) % MCV (80.0-100.0) fL MCH (25.0-35.0) pg MCHC (31.0-37.0) g/dL RDW (11.5-15.5) % Plt Count (150-450) k/uL Lymphocytes # (1.0-4.8) k/uL Macrocytosis PT (10.0-12.5) sec INR (<1.2) Sodium (137-145) mmol/L Chloride (98-107) mmol/L Carbon Dioxide (22-30) mmol/L BUN (7-17) mg/dL Creatinine (0.52-1.04) mg/dL Glucose (74-99) mg/dL POC Glucose (mg/dL) (70-110) mg/dL Plasma Lactic Acid Gold 0.6 L (0.7-2.0) mmol/L Calcium (8.4-10.2) mg/dL Phosphorus (2.5-4.5) mg/dL Magnesium (1.6-2.3) mg/dL AST (14-36) U/L Alkaline Phosphatase (38-126) U/L C-Reactive Protein (<1.0) mg/dL Total Protein (6.3-8.2) g/dL Albumin (3.5-5.0) g/dL Procalcitonin (0.02-0.09) ng/mL Cortisol (3.1-22.4) UG/DL Urine Blood (Negative) Ur Leukocyte Esterase (Negative) Urine RBC (0-5) /hpf Urine WBC (0-5) /hpf Urine Bacteria (None) /hpf Hyaline Casts (0-2) /lpf Urine Mucus (None) /hpf Crossmatch Chest x-ray: report reviewed Assessment and Plan (1) Pancytopenia Current Visit: Yes Status: Acute Priority: High Code(s): D61.818 - OTHER PANCYTOPENIA SNOMED Code(s): 325251897 (2) Acute kidney injury Current Visit: Yes Status: Acute Priority: High Code(s): N17.9 - ACUTE KIDNEY FAILURE, UNSPECIFIED SNOMED Code(s): 90277524 Plan: Pancytopenia, DARIA: Presented to the ER from longterm with complaints of altered mental status and generalized weakness worsening over the 4 days prior to admission. Upon arrival she was found to have profound hypotension and was given multiple fluid boluses and received 100 mg of Solu-Cortef. -Has followed with Dr. Saunders for pancytopenia with workup for the same. Full history in HPI -She was last seen in clinic on 08/02/2023 and was experiencing weakness, and retaining fluid in abdomen and legs. It was discussed with the patient and her that she was showing signs of possible underlying liver cirrhosis, and GI evaluation was recommended and referral was sent to Dr. Segura. Her pancytope landon was thought to likely be related to portal hypertension. Unable to obtain HPI at todays visit, unsure if patient has followed up with GI since last clinic visit. Will need to discuss with GI if f/u or further workup has been obtained since last f/u clinic f/u - CBC reviewed, WBC 2.9, hemoglobin 6.2, MCV 119.5, platelets 23,000. S/p 1 unit PRBCs. CBC today pending. Creatinine 2.03, GFR 29. PT 12.3, INR 1.2, PTT 20.6. Bilirubin on normal at 0.8. AST 10, ALT 7, ALP 158. Cortisol elevated at 126, TSH 0.896. Typically hemoglobin is in the 8 range, and platelets typically in the 200,000 range but has been seen to decrease with acute conditions. Anemia labs last checked in clinic July 2023 revealed Vit B12 1483, iron saturation 20%. Ferritin 133. Consistent with anemia of inflammation -Cytopenias likely reactive in nature. Will obtain Vit B12, folate and fibrinogen. Will continue to monitor and recommend supportive transfusions -Continue to monitor CBC. Please transfuse for hgb less than 7 or plts less than 10,000 or if symptomatic
[2023-12-31] MEDS: SODIUM CHLORIDE 0.9% 1,000 ML IV ONE (04:57)
[2023-12-31] MEDS: NOREPINEPHRINE 4 MG in SODIUM CHLORIDE 0.9% 250 ML IV SCH (05:01)
[2023-12-31 09:50] LABS: Anisocytosis Moderate; Basophils % (A) 0 %; Eosinophils % (A) 0 %; HCT 23.2 % (34.0-46.0); HGB 7.3 gm/dL (11.4-16.0); Hypochromasia Moderate; Lymphocytes # (A) 0.6 k/uL (1.0-4.8); Lymphocytes % (A) 6 %; MCH 34.1 pg (25.0-35.0); MCHC 31.5 g/dL (31.0-37.0); MCV 108.3 fL (80.0-100.0); Macrocytosis Marked; Mean Platelet Volume 13.9; Monocytes # (A) 0.4 k/uL (0-1.0); Monocytes % (A) 4 %; Neutrophils % (A) 89 %; Poikilocytosis Slight; RBC 2.14 m/uL (3.80-5.40); RDW 22.6 % (11.5-15.5); WBC 10.2 k/uL (3.8-10.6)
[2023-12-31] MEDS: HYDROcodone/APAP 5-325MG 1 EACH TAB PO PRN (09:50)
[2023-12-31 09:51] LABS: Platelet Count 22 k/uL (150-450)
[2023-12-31 09:59] LABS: ALT <6 U/L (4-34); AST 9 U/L (14-36); African American GFR (CKD) 64 (>60 ml/min/1.73 sqM); Albumin 1.7 g/dL (3.5-5.0); Alkaline Phosphatase 113 U/L (38-126); Anion Gap 15 mmol/L; Blood Urea Nitrogen 34 mg/dL (7-17); Calcium 6.8 mg/dL (8.4-10.2); Carbon Dioxide 12 mmol/L (22-30); Chloride 123 mmol/L (98-107); Glucose 87 mg/dL (74-99); Non-African American GFR(CKD) 55 (>60 ml/min/1.73 sqM); Potassium 3.1 mmol/L (3.5-5.1); Sodium 150 mmol/L (137-145); Total Bilirubin 0.5 mg/dL (0.2-1.3); Total Protein 4.2 g/dL (6.3-8.2)
--- NOTE | 2023-12-31 11:10 | P.PN ---
Subjective Progress Note Date: 12/31/23 H&P 12/30/23 Patient is a 48-year-old female with a past medical history of hepatomegaly, liver cirrhosis, hypothyroidism, adrenal insufficiency on Cortef, iron deficiency anemia and chronic thrombocytopenia was [facility] due to patient being incoherent and delirious results having generalized weakness. Patient has been having symptoms for the past 4 days and has been worsening. Patient was also hypotensive at the facility. Patient cannot provide any history at this time. Patient apparently was recently at [facility], treated for cellulitis according to her . Patient is also known to have history of ascites, maintained on Lasix and Aldac tone. Also receives midodrine for hypotension at home. Current to the family patient had a fall recently and has been having back pain. She is on Flexeril, gabapentin and [place] 5 every 6 at the facility. Patient was recently admitted to the hospital for lower extremity cellulitis mainly right side. Patient was seen by hematology as an outpatient due to anemia and thrombocythemia which is thought to be due to chronic liver disease. patient is afebrile. On admission patient was hypotensive with blood pressure 74/44 pulse is 101 respiration 16 and pulse ox 93% on room air. Chest x-ray showed trace left pleural effusion and chronic changes of the lungs. EKG showed sinus rhythm with heart rate 97 and x-ray of the tibia and fibula showed no evidence of osteoporosis. Superficial soft tissue edema surrounding the right lower leg. X-ray of the femur showed no acute osseous pathology. Laboratory data showed WBC 4.3 on admission, hemoglobin 7.3 and dropped down to 6.2 last night. Platelet count 24 Sodium 136 potassium 4.2 chloride 114 bicarb is 17 BUN 25 and creatinine 2.03 and blood sugar 61 calcium 7.1 phosphorus 4.4 magnesium 2.4 AST cortisol level 126. Urinalysis showed small blood large leukocyte esterase with RBCs 8 and WBC 6. Influenza AB COVID-19 PCR and RSV negative. 12/31/2023 patient remains in ER hold for ICU. Maintaining O2 sats in the 90s on 2 L nasal cannula , respiratory rate ranging from 12-22 ,continues to require pressor support. Maintaining maps in the 60s on Levophed. Continues on midodrine ,stress dosed IV Solu-Cortef ,IV fluid hydration. Lugdunensis shay teremia reported in 1 of 2 blood cultures, with no resistance mechanism found - as per [facility] blood culture results reported from [facility] call to pharmacy. Continues on daptomycin and Zosyn as per infectious disease. Temperature pending, WBC within normal limits, 10.2. Hemoglobin 7.3, MCV 108.3 ,platelets 22. Sodium 150, potassium 3.1, bicarb 12, BUN 34, creatinine 1.18. T. bili 0 .5, AST 9, ALT less than 6, alk phos 113. Procalcitonin 0.25, CRP 5.4, proBNP 4990, total protein 4.2, albumin 1.7. CT of abdomen pelvis reported large consolidative/airspace opacities in the lung bases, marked ascites, marked anasarca .brain CT completed last night reported no acute intracranial hemorrhage, mass effect or midline shift seen. Objective - Vital Signs Vital signs: Vital Signs Temp 97.9 F 12/30/23 04:59 Pulse 87 12/31/23 07:56 Resp 12 12/31/23 07:56 BP 93/52 12/31/23 07:56 Pulse Ox 95 12/31/23 07:56 FiO2 Intake & Output 12/30/23 12/31/23 12/31/23 18:59 06:59 18:59 Intake Total 899.264 24.167 Output Total 200 Balance 699.264 24.167 Intake: Intake, IV Titration 899.264 24.167 Amount Norepinephrine 4 mg In 19.264 24.167 Sodium Chloride 0.9% 250 ml @ 0.03 MCG/KG/MIN 7. 881 mls/hr IV .Q24H [facility] Rx#:[id number] Piperacillin-Tazobactam 3 100 .375 gm In Sodium Chloride 0.9% 100 ml @ 25 mls/hr IVPB Q8H [facility] Rx#: [id number] Sodium Chloride 0.9% 1, 780 000 ml @ 130 mls/hr IV . Q7H42M [facility] Rx#:[id number] Output: Urine 200 - Exam PHYSICAL EXAMINATION: GENERAL:Patient is lethargic, weak, sleepy, minimally conversing, speaks a couple words upon hearing her name. HEENT: Normocephalic. Neck is supple. Pupils reactive. Mucous membranes dry Neck: Supple, no JVD. CHEST EXAMINATION: Trachea is central. Symmetrical expansion. Bibasilar diminished sounds. CARDIAC: Normal S1, S2 with no gallops. No murmurs ABDOMEN: Obese, soft. Nontender ,bowel sounds present. No guarding. Skin/Extremities: Positive anasarca , multiple ulcerations; stage II pressure ulcers of left and right hips ,bilateral lower extremity 2+ edema, sloughing, with weeping serous drainage, purpura. nonhealing ulceration with fat layer exposure of left and right calves, nonhealing ulceration left ankle with fat layer exposure. Neurologic: Limited exam, due to patient's current mental status . Microbiology 12/29/23 13:59 Blood Blood Culture Gram Stain - Preliminary 12/29/23 13:59 Blood Blood Culture - Preliminary Molecular ID - Labs CBC & Chem 7: 12/31/23 08:46 12/31/23 08:46 Labs: Abnormal Lab Results - Last 24 Hours (Table) 12/30/23 12/30/23 12/30/23 Range/Units 07:45 08:11 12:03 RBC (3.80-5.40) m/uL Hgb (11.4-16.0) gm/dL Hct (34.0-46.0) % MCV (80.0-100.0) fL RDW (11.5-15.5) % Plt Count (150-450) k/uL Neutrophils # (1.3-7.7) k/uL Lymphocytes # 0.4 L (1.0-4.8) k/uL Macrocytosis PT 13.1 H (10.0-12.5) sec INR 1.2 H (<1.2) Sodium (137-145) mmol/L Potassium (3.5-5.1) mmol/L Chloride (98-107) mmol/L Carbon Dioxide 13 L (22-30) mmol/L BUN 48 H (7-17) mg/dL Creatinine 1.58 H (0.52-1.04) mg/dL Glucose 137 H (74-99) mg/dL Plasma Lactic Acid Gold (0.7-2.0) mmol/L Calcium 7.0 L (8.4-10.2) mg/dL Phosphorus 4.6 H (2.5-4.5) mg/dL AST (14-36) U/L C-Reactive Protein 5.4 H (<1.0) mg/dL Total Protein 4.3 L (6.3-8.2) g/dL Albumin 1.9 L (3.5-5.0) g/dL 12/30/23 12/31/23 12/31/23 Range/Units 12:03 08:46 08:46 RBC 2.14 L (3.80-5.40) m/uL Hgb 7.3 L (11.4-16.0) gm/dL Hct 23.2 L (34.0-46.0) % MCV 108.3 H (80.0-100.0) fL RDW 22.6 H (11.5-15.5) % Plt Count 22 L (150-450) k/uL Neutrophils # 9.0 H (1.3-7.7) k/uL Lymphocytes # 0.6 L (1.0-4.8) k/uL Macrocytosis Marked A PT (10.0-12.5) sec INR (<1.2) Sodium 150 H (137-145) mmol/L Potassium 3.1 L (3.5-5.1) mmol/L Chloride 123 H (98-107) mmol/L Carbon Dioxide 12 L (22-30) mmol/L BUN 34 H (7-17) mg/dL Creatinine 1.18 H (0.52-1.04) mg/dL Glucose (74-99) mg/dL Plasma Lactic Acid Gold 0.6 L (0.7-2.0) mmol/L Calcium 6.8 L (8.4-10.2) mg/dL Phosphorus (2.5-4.5) mg/dL AST 9 L (14-36) U/L C-Reactive Protein (<1.0) mg/dL Total Protein 4.2 L (6.3-8.2) g/dL Albumin 1.7 L (3.5-5.0) g/dL Microbiology - Last 24 Hours (Table) 12/29/23 13:59 Blood Culture Gram Stain - Preliminary Blood Blood Culture - Preliminary Molecular ID Assessment and Plan Assessment: Sepsis and septic shock, in a patient with Staph. Lugdunensis bacteremia reported in 1 of 2 blood cultures, with no resistance mechanism found. Continues on daptomycin and Zosyn as per infectious disease. Altered mental status due to metabolic and toxic encephalopathy Acute kidney injury due to ATN secondary to hypotension,hemodynamic instability. Creatinine 2.03 on admission. Baseline 1.0. Multiple ulcerations , present on admission :stage II pressure ulcers of left and right hips, nonhealing ulceration with fat layer exposure of left and right calves, nonhealing ulceration left ankle with fat layer exposure, wound care team following. Chronic right lower extremity cellulitis, recently treated at [facility] Lactic acidosis, resolved Acute none anion gap metabolic acidosis Severe thrombocytopenia likely due to liver disease Pancytopenia, possibly related to portal hypertension, follows with Dr. Saunders, oncologist/spout liner helper. Status post transfusion 1 unit packed RBCs History of liver cirrhosis, recently established with [facility], Dr. Rachel Segura. Hypoalbuminemia Hypothyroidism History of adrenal insufficiency, required Solu-Cortef at [facility], maintained on Cortef outpatient Iron deficiency anemia Plan: Continue on current medication resume ,monitoring and symptomatic treatment. Patient remains in ER hold for ICU bed. Multiple consults in place including vertical borer/pulmonary, neurology, hematology, infectious disease. Wound care as per wound care team. Patient is requiring higher level of care including gastroenterology, which is unavailable this week, requires transfer to a tertiary care center.Transfer to [facility] has been initiated. [facility] has accepted patient for transfer. Per case management/social work review, patient's insurance,[facility] [place], does not require prior authorization. [facility] requesting prior insurance authorization-initiated. Discharge to [facility] pending insurance authorization, in progress. Prognosis guarded given multiple complex medical issues. The impression and plan of care has been dictated as directed. : I performed a history and examination of this patient, discussed the same with the dictator. I agree with the dictator's note ,documented as a scribe. Any additional findings or plans will be noted.
[2023-12-31] MEDS ORDERED: Potassium Replacement Protocol 1 EACH MISC MISCELLANE PRN (11:36)
--- NOTE | 2023-12-31 11:37 | P.CONS ---
History of Present Illness - Reason for Consult Consult date: 12/31/23 wound care - History of Present Illness This is a 41 [id number] female with past medical history significant for hepatomegaly, liver cirrhosis, hypothyroidism, adrenal insufficiency on Cortef, iron deficiency anemia and chronic thrombocytopenia. In seen in the ER for multiple open ulcerations to the left groin left ankle left calf left hip right calf and right hip. Patient has multiple open ulcerations with fat layer exposure slough and nonviable tissue present with moderate draining of serous fluid. Ulcerations have minimal to no granulation noted. Wound edges are attached to the wound bases with no tunneling or undermining noted. Patient is a poor historian. Review of systems: Unable to obtain due to patient's mental status Physical exam: General Appearance: Alert, cooperative, no distress, appears stated age. Skin: See HPI all other Skin color, texture, tugor normal, no rashes or lesions. Neurologic: Alert oriented x3 Assessment: 1. Stage II pressure ulcer left hip - l89.220 2. Stage II pressure ulcer right hip - L89.211 3. Nonhealing ulceration with fat layer exposure left calf - L97.222 4. Nonhealing pressure ulcer right calf with fat layer exposure - L97.212 5. Nonhealing ulceration left ankle with fat layer exposure - L97.322 Plan: 1. Apply absorptive silver dry, border foam, may secure with rolled gauze as needed. Change Saturday. Turn patient every 2 hours. 2. Patient would benefit from advanced wound care and wound care setting. We be happy to see her upon discharge. Thank you for the consultation any questions please contact the wound care pam ter DNP note has been reviewed and discussed with Dr. Washington and the impression and plan of care has been directed as dictated. Past Medical History Past Medical History: GERD/Reflux, Osteoarthritis (OA), Thyroid Disorder Additional Past Medical History / Comment(s): enlarged liver and spleen,hx. iron deficiency anemia, recent change in bowel movements , abdominal pain, nausea, blood clots post covid History of Any Multi-Drug Resistant Organisms: CRE, Other MDRO Year Discovered:: 10/14/23 MDRO Carbapenem NOT Detected per [facility] MDRO Source:: Urine Past Surgical History: Bariatric Surgery, Section, Cholecystectomy, Tubal Ligation Additional Past Surgical History / Comment(s): Bariatric revision duodenum switch Aneesh-en-Y gastric bypass, 3 c-sections. PANECTOMY. Past Anesthesia/Blood Transfusion Reactions: Family Hisory of Malignant Hyperthermia Additional Past Anesthesia/Blood Transfusion Reaction / Comm: 1rst cousin hx malignant hyperthermia as child.Pt has had anesthesia in past without problems Past Psychological History: Depression Smoking Status: Never smoker - Past Family History Mother Family Medical History: No Reported History Medications and Allergies Home Medications Medication Instructions Recorded Confirmed Type Vortioxetine Hydrobromide 20 mg PO DAILY@0902/17/18 12/29/23 History [Trintellix] Calcium Carbonate [Tums] 1,000 mg PO TID PRN 12/29/23 12/29/23 History Cyclobenzaprine [Flexeril] 10 mg PO TID PRN 12/29/23 12/29/23 History Furosemide [Lasix] 20 mg PO DAILY@1300 12/29/23 12/29/23 History Furosemide [Lasix] 40 mg PO DAILY@0612/29/23 12/29/23 History Gabapentin [Neurontin] 300 mg PO HS@209912/29/23 12/29/23 History HYDROcodone/APAP 5-325MG [[place] 1 tab PO Q6H PRN 12/29/23 12/29/23 History 5-325] Hydrocortisone [Cortef] 20 mg PO DAILY@0912/29/23 12/29/23 History Lactose-Reduced Food [Ensure Plus] 1 can PO DAILY@0900 12/29/23 12/29/23 History Levothyroxine Sodium [Synthroid] 200 mcg PO DAILY@0612/29/23 12/29/23 History Miconazole Nitrate Powder 2% 1 applic TOPICAL Q12H 12/29/23 12/29/23 History Midodrine HCl [ProAmatine] 10 mg PO TID-W/MEALS@08,12,17 12/29/23 12/29/23 History Nystatin 100,000 Unit/gm Powd 1 applic TOPICAL BID 12/29/23 12/29/23 History [Mycostatin Powder] Ondansetron [Zofran] 4 mg PO Q6H PRN 12/29/23 12/29/23 History Potassium Chloride ER [K-Dur 20] 20 meq PO DAILY@0600 12/29/23 12/29/23 History Spironolactone [Aldactone] 12.5 mg PO DAILY@0900 12/29/23 12/29/23 History Therahoney External Gel 1 applic TOPICAL DAILY PRN 12/29/23 12/29/23 History Therahoney External Gel 1 applic TOPICAL DAILY PRN 12/29/23 12/29/23 History Therahoney External Gel 1 applic TOPICAL HS 12/29/23 12/29/23 History Therahoney External Gel 1 applic TOPICAL HS 12/29/23 12/29/23 History Z-Guard 1 applic TOPICAL BID 12/29/23 12/29/23 History Z-Guard 1 applic TOPICAL DAILY PRN 12/29/23 12/29/23 History Allergies Allergy/AdvReac Type Severity Reaction Status Date / Time No Known Allergies Allergy Verified 12/29/23 14:04 Physical Exam Vitals: Vital Signs Temp Pulse Resp BP Pulse Ox 12/31/23 11:15 97.5 F L 70 14 92/56 100 12/31/23 11:00 66 12 89/54 100 12/31/23 10:45 73 12 87/60 100 12/31/23 10:30 68 12 85/58 100 12/31/23 10:15 69 12 86/51 99 12/31/23 10:00 83 12 86/54 99 12/31/23 09:45 70 11 L 78/50 99 12/31/23 09:30 66 11 L 84/51 100 12/31/23 09:15 75 11 L 84/58 100 12/31/23 09:00 74 10 L 83/55 100 12/31/23 08:45 83 13 78/47 100 12/31/23 08:30 70 10 L 86/58 100 12/31/23 08:15 73 12 88/53 100 12/31/23 08:00 80 15 93/52 100 12/31/23 07:56 87 12 93/52 95 12/31/23 07:45 77 10 L 88/59 100 12/31/23 07:30 70 11 L 86/55 100 12/31/23 07:15 66 10 L 90/49 100 12/31/23 06:49 66 17 86/52 12/31/23 06:18 71 17 84/50 100 12/31/23 05:00 77 17 75/46 100 12/31/23 03:00 77 17 79/47 100 12/31/23 01:00 73 17 71/50 100 12/30/23 23:00 71 17 81/44 100 12/30/23 21:00 70 10 L 84/46 82 L 12/30/23 20:00 74 18 83/48 100 12/30/23 18:30 71 12 78/46 100 12/30/23 18:00 80 16 82/52 95 12/30/23 17:09 77 18 78/46 100 12/30/23 16:23 75 18 80/53 100 12/30/23 14:00 72 12 83/51 100 12/30/23 13:30 69 10 L 79/45 100 12/30/23 13:00 67 12 68/54 100 12/30/23 12:00 70 18 79/51 96 Intake and Output 12/30/23 12/31/23 12/31/23 22:59 06:59 14:59 Intake Total 899.264 82.878 Output Total 200 Balance 699.264 82.878 Intake: Intake, IV Titration 899.264 82.878 Amount Norepinephrine 4 mg In 19.264 82.878 Sodium Chloride 0.9% 250 ml @ 0.03 MCG/KG/MIN 7. 881 mls/hr IV .Q24H [facility] Rx#:[id number] Piperacillin-Tazobactam 3 100 .375 gm In Sodium Chloride 0.9% 100 ml @ 25 mls/hr IVPB Q8H [facility] Rx#: [id number] Sodium Chloride 0.9% 1, 780 000 ml @ 130 mls/hr IV . Q7H42M [facility] Rx#:[id number] Output: Urine 200 Results CBC & Chem 7: 12/31/23 08:46 12/31/23 08:46 Labs: Abnormal Lab Results - Last 24 Hours (Table) 12/30/23 12/30/23 12/31/23 Range/Units 12:03 12:03 08:46 RBC (3.80-5.40) m/uL Hgb (11.4-16.0) gm/dL Hct (34.0-46.0) % MCV (80.0-100.0) fL RDW (11.5-15.5) % Plt Count (150-450) k/uL Neutrophils # (1.3-7.7) k/uL Lymphocytes # (1.0-4.8) k/uL Macrocytosis PT 13.1 H (10.0-12.5) sec INR 1.2 H (<1.2) Sodium 150 H (137-145) mmol/L Potassium 3.1 L (3.5-5.1) mmol/L Chloride 123 H (98-107) mmol/L Carbon Dioxide 12 L (22-30) mmol/L BUN 34 H (7-17) mg/dL Creatinine 1.18 H (0.52-1.04) mg/dL Plasma Lactic Acid Gold 0.6 L (0.7-2.0) mmol/L Calcium 6.8 L (8.4-10.2) mg/dL AST 9 L (14-36) U/L Total Protein 4.2 L (6.3-8.2) g/dL Albumin 1.7 L (3.5-5.0) g/dL 12/31/23 Range/Units 08:46 RBC 2.14 L (3.80-5.40) m/uL Hgb 7.3 L (11.4-16.0) gm/dL Hct 23.2 L (34.0-46.0) % MCV 108.3 H (80.0-100.0) fL RDW 22.6 H (11.5-15.5) % Plt Count 22 L (150-450) k/uL Neutrophils # 9.0 H (1.3-7.7) k/uL Lymphocytes # 0.6 L (1.0-4.8) k/uL Macrocytosis Marked A PT (10.0-12.5) sec INR (<1.2) Sodium (137-145) mmol/L Potassium (3.5-5.1) mmol/L Chloride (98-107) mmol/L Carbon Dioxide (22-30) mmol/L BUN (7-17) mg/dL Creatinine (0.52-1.04) mg/dL Plasma Lactic Acid Gold (0.7-2.0) mmol/L Calcium (8.4-10.2) mg/dL AST (14-36) U/L Total Protein (6.3-8.2) g/dL Albumin (3.5-5.0) g/dL Microbiology - Last 24 Hours (Table) 12/29/23 13:59 Blood Culture Gram Stain - Preliminary Blood Blood Culture - Preliminary Molecular ID
[2023-12-31 12:22] LABS: ABG Base Excess -11.4 mmol/L; ABG HCO3 15 mmol/L (21-25); ABG Oxygen Saturation 98.1 % (94-97); ABG PCO2 29 mmHg (35-45); ABG PH 7.32 (7.35-7.45); ABG PO2 167 mmHg (83-108); ABG TCO2 16 mmol/L (19-24); Allen Test Performed? Yes
[2023-12-31] MEDS: SODIUM CHLORIDE 0.9% IVPB SCH (13:00)
[2023-12-31] MEDS: DAPTOMYCIN IVPB SCH (13:00)
[2023-12-31] MEDS: HYDROmorphone 0.5 MG/0.5 ML SYRINGE IVP PRN (14:47)
--- NOTE | 2023-12-31 15:16 | P.PN ---
Subjective Progress Note Date: 12/31/23 Principal diagnosis: Septic shock and bacteremia This is a 48-year-old female known history of multiple medical problems including liver cirrhosis, adrenal insufficiency maintained normally on Cortef, hypothyroidism, iron deficiency anemia, chronic thrombocytopenia secondary to liver cirrhosis, patient was brought in from long term because of mental status change and generalized weakness. Symptoms have been getting worse over the last 4 days, patient was seen in the ER, she presented with profound hypotension, given multiple fluid boluses, received 100 mg of Solu-Cortef, patient apparently was recently at [facility], and she was treated for cellulitis according to her in addition to her cellulitis, patient is also known to have history of ascites, maintained on Aldactone and Lasix. She is also on midodrine for low blood pressure normally. I saw this patient in the ER, she could not give much history, obtained minimal history from the and apparently she was recently at [facility], after evaluating the patient, I recommended more fluids to be given, I also recommended admitting the patient to the ICU instead of admitting the patient to regular medical floor. Considering her mental status, I recommended a CT of the brain without contrast. Labs in the ER were reviewed, WBC count is 3 hemoglobin 7.1 platelets are 15,000. Hematology consultation is pending. Patient had a low bicarb of 13 however is a none anion gap metabolic acidosis. BUN is 48 creatinine is 1.58, it is not clear to me what is her baseline renal functioning from her last admission at [facility]. Lactic acid was noted to be 0.6. Chest x-ray is showing possibly mild interstitial edema, BNP level is 4990 Patient was reevaluated today on 12/31/2023, patient remains in the ER, she is presently told to go to the ICU, and she remains on norepinephrine at 0.09 mcg/kg/min her IV fluid is 0.9 normal saline at 130 cc/h. Patient is receiving antibiotics in the form of Zosyn and daptomycin, her blood cultures are positive for gram-positive cocci, presumably Staph aureus, and that being addressed by infectious disease on the case. Patient has significant oozing from her lower extremities, and she has multiple ulcerations. In addition to ulcerations in her legs, patient has a stage II pressure ulcer left hip, stage II pressure ulcer right hip nonhealing ulceration of left calf region, nonhealing pressure ulcer right calf with fat layer exposure and a nonhealing ulceration of left ankle with fat layer exposure. Hence the most likely source of her infection seems to be from her skin pressure ulcers. Surprisingly the patient is not in distress, she tells me that she feels better today compared to how she felt yesterday. Her WBC count today is 10.2 hemoglobin is 7.3, platelets are 23,000. ABGOn 35% FiO2 and BiPAP showed a pO2 of 167 pCO2 of 29 pH of 7.32. Sodium is up to 150 potassium 3.1 bicarb is 12 and the patient has anion gap of 15., Ammonia level is less than 9. BUN is 34 creatinine 1.18, definitely improving compared to yesterday with hydration and with blood pressure supportnorepinephrine. Patient is a bit lethargic but arousable, seems to be appropriate, oriented x 3. Apparently this morning was seen by her primary care admitting physician, and planning to transfer to [facility] because of no GI availability/coverage in our institution. Her abdominal CT showed ascites and anasarca. This is clearly related to her liver disease and portal hypertension Objective - Vital Signs Vital signs: Vital Signs Temp 97.5 F L 12/31/23 11:15 Pulse 67 12/31/23 14:00 Resp 11 L 12/31/23 14:00 BP 87/53 12/31/23 14:00 Pulse Ox 99 12/31/23 12:45 FiO2 28 12/31/23 12:28 Intake & Output 12/30/23 12/31/23 12/31/23 18:59 06:59 18:59 Intake Total 899.264 112.648 Output Total 200 Balance 699.264 112.648 Intake: Intake, IV Titration 899.264 112.648 Amount Norepinephrine 4 mg In 19.264 112.648 Sodium Chloride 0.9% 250 ml @ 0.03 MCG/KG/MIN 7. 881 mls/hr IV .Q24H [facility] Rx#:[id number] Piperacillin-Tazobactam 3 100 .375 gm In Sodium Chloride 0.9% 100 ml @ 25 mls/hr IVPB Q8H [facility] Rx#: [id number] Sodium Chloride 0.9% 1, 780 000 ml @ 130 mls/hr IV . Q7H42M [facility] Rx#:[id number] Output: Urine 200 - Exam General: Revealed a 48-year-old female sleepy, weak, arousable, follows instructions HEENT: Normocephalic. Neck is supple. Pupils reactive. Nostrils clear. Oral cavity is dry. Neck reveals no JVD, carotid bruits, or thyromegaly. CHEST EXAMINATION: Trachea is central. Symmetrical expansion. Diminished breath sound bilaterally no rhonchi no wheezes CARDIAC: Normal S1, S2 with no gallops. No murmurs ABDOMEN: Obese soft nontender no megaly no rebound no guarding Extremities: Bilateral lower extremity 2+ edema, significant areas of ecchymosis and purpura noted all over the lower extremities. Multiple ulcerations noted with oozing and there is multiple areas with exposed fat layers in both lower extremities. Neurologically patient is arousable, follows simple instructions, but seems to be generally weak and tired. Skin: Areas of ecchymosis and purpura throughout her whole skin area. Specially in the lower extremities. Psychiatric: Flat affect, depressed mood, oriented x 3. Musculoskeletal: No deformities and no limitation range of motion, again the patient has multiple areas of ulcerations involving her hips and her lower extremities as noted earlier. - Labs CBC & Chem 7: 12/31/23 08:46 12/31/23 08:46 Labs: Abnormal Lab Results - Last 24 Hours (Table) 12/31/23 12/31/23 12/31/23 Range/Units 08:46 08:46 12:19 RBC 2.14 L (3.80-5.40) m/uL Hgb 7.3 L (11.4-16.0) gm/dL Hct 23.2 L (34.0-46.0) % MCV 108.3 H (80.0-100.0) fL RDW 22.6 H (11.5-15.5) % Plt Count 22 L (150-450) k/uL Neutrophils # 9.0 H (1.3-7.7) k/uL Lymphocytes # 0.6 L (1.0-4.8) k/uL Macrocytosis Marked A ABG pH 7.32 L (7.35-7.45) ABG pCO2 29 L (35-45) mmHg ABG pO2 167 H (83-108) mmHg ABG HCO3 15 L (21-25) mmol/L ABG Total CO2 16 L (19-24) mmol/L ABG O2 Saturation 98.1 H (94-97) % Sodium 150 H (137-145) mmol/L Potassium 3.1 L (3.5-5.1) mmol/L Chloride 123 H (98-107) mmol/L Carbon Dioxide 12 L (22-30) mmol/L BUN 34 H (7-17) mg/dL Creatinine 1.18 H (0.52-1.04) mg/dL Calcium 6.8 L (8.4-10.2) mg/dL AST 9 L (14-36) U/L Total Protein 4.2 L (6.3-8.2) g/dL Albumin 1.7 L (3.5-5.0) g/dL Microbiology - Last 24 Hours (Table) 12/29/23 13:59 Blood Culture Gram Stain - Preliminary Blood Blood Culture - Preliminary Molecular ID Assessment and Plan Assessment: Impression: Septic shock with bacteremia, most likely source is her skin infections and skin ulcerations involving both lower extremities and hips Altered mental status secondary to acute metabolic encephalopathy Acute kidney injury most likely secondary to low blood pressures/hypotension/acute tubular necrosis, improving with hydration and with blood pressure support Chronic lower extremity cellulitis, has been recently treated at [facility] Severe thrombocytopenia secondary to liver disease Chronic pancytopenia History of adrenal insufficiency requiring Solu-Cortef and she is maintained on Cortef on outpatient basis Hypothyroidism History of liver cirrhosis Portal hypertension with ascites and anasarca Hypoalbuminemia, with anasarca and ascites Acute anion gap metabolic acidosis Recommendation: Cautious hydration, however change made IV fluid to D5W Start bicarb drip with 3 A of bicarb in 1 L of D5W running at 50 cc/h for her metabolic acidosis Continue stress doses of Solu-Cortef Continue antibiotics as per infectious disease on the case Agree with transfer to [facility] since we have no GI coverage Patient has been seen by many different consultants including hematology, neurology, infectious disease CT of the brain showed no acute process Continue to hold any narcotics or sedatives Continue midodrine Patient remains critically ill, and I fully agree with transfer to [facility] Critical care time is over 30 minutes Will continue to follow Time with Patient: Greater than 30
[2023-12-31] MEDS: DEXTROSE 5% IN WATER 1,000 ML IV SCH (15:25)
[2023-12-31] MEDS: DEXTROSE 5% IN WATER 1,000 ML with SODIUM BICARB (1 MEQ/ML) 150 ML IV SCH (15:47)
[2023-12-31 17:02] LABS: Glucose,Whole Blood 119 mg/dL (70-110)
[2023-12-31 19:08] LABS: Appearance,Urine Clear (Clear); Bacteria,Urine Occasional /hpf; Bilirubin,Urine Negative (Negative); Blood,Urine Trace (Negative); Color,Urine Light Yellow; Glucose,Urine (UA) Negative (Negative); Ketones,Urine Negative (Negative); Leukocyte Esterase,Urine Moderate (Negative); Mucus,Urine Many /hpf; Nitrite,Urine Positive (Negative); PH, Urine 5.5 (5.0-8.0); Protein,Urine Trace (Negative); RBC,Urine 2 /hpf (0-5); Specific Gravity,Urine 1.014 (1.001-1.035); Squamous Epithelial Cell,Urine <1 /hpf (0-4); Urobilinogen,Urine <2.0 mg/dL (<2.0); WBC,Urine 30 /hpf (0-5)
[2023-12-31 20:42] VITALS: TEMP 97
[2023-12-31] MEDS: POTASSIUM CHLORIDE 10 MEQ in WATER FOR INJECTION 1 100ML.BAG IVPB SCH (21:06)
[2024-01-01 01:00] VITALS: BP 95/62; PULSE 71; RESP 15
== END 2024-01-01 01:17 | disposition short-term general hospital (02) | DRG 871 ==
LOC: EC 12:24 → 3SCARD 16:46 → 2SICU 12-30 11:57
PROVIDERS: ADMIT Family Medicine; ATTEND Family Medicine
PROC: 5A09457 Assistance with Respiratory Ventilation, 24-96 Consecutive Hours, Continuous Positive Airway Pressure (ICD-10-PCS; 2023-12-31)
PROC: 5A1935Z Respiratory Ventilation, Less than 24 Consecutive Hours (ICD-10-PCS; principal; 2024-01-01)
PROC: 0BH17EZ Insertion of Endotracheal Airway into Trachea, Via Natural or Artificial Opening (ICD-10-PCS; principal; 2024-01-01)
DX: A41.9 Sepsis, unspecified organism (principal); G93.41 Metabolic encephalopathy; N17.0 Acute kidney failure with tubular necrosis; R65.21 Severe sepsis with septic shock; D61.818 Other pancytopenia; E27.1 Primary adrenocortical insufficiency; K76.6 Portal hypertension; L03.115 Cellulitis of right lower limb; L03.116 Cellulitis of left lower limb; L97.222 Non-pressure chronic ulcer of left calf with fat layer exposed; L97.212 Non-pressure chronic ulcer of right calf with fat layer exposed; L97.322 Non-pressure chronic ulcer of left ankle with fat layer exposed; E88.09 Other disorders of plasma-protein metabolism, not elsewhere classified; E03.9 Hypothyroidism, unspecified; L89.222 Pressure ulcer of left hip, stage 2; F32.A Depression, unspecified; K74.60 Unspecified cirrhosis of liver; L89.212 Pressure ulcer of right hip, stage 2; W19.XXXA Unspecified fall, initial encounter; R19.4 Change in bowel habit; M54.9 Dorsalgia, unspecified; D50.9 Iron deficiency anemia, unspecified; D69.59 Other secondary thrombocytopenia; N92.0 Excessive and frequent menstruation with regular cycle; K21.9 Gastro-esophageal reflux disease without esophagitis; Z79.01 Long term (current) use of anticoagulants; Z79.890 Hormone replacement therapy; Z79.899 Other long term (current) drug therapy; Z86.16 Personal history of COVID-19; Z98.84 Bariatric surgery status; Z11.52 Encounter for screening for COVID-19
CPT/HCPCS: 36415; 36600; 70450; 71046; 74176; 80053; 81001; 82140; 82533; 82607; 82747; 82805; 83605; 83735; 83880; 84100; 84145; 84443; 84484; 85025; 85384; 85610; 85730; 86140; 86850; 86900; 86901; 86920; 87040; 87077; 87086; 87186; 87636; 93005; 94660; 96361; 96365; 96366; 96367; 96368; 96375; 96376; 99291